=== PATIENT | female | born 1980 | race Caucasian/White ===

== ENCOUNTER 2018-06-10 13:34 | Observation (INO) | payer OTHER, SELFPAY ==
[2018-06-10 13:39] VITALS: BP 152/95; PULSE 115; RESP 12; TEMP 36.2; O2SAT 97
--- NOTE | 2018-06-10 13:54 | ED.GENADUL_ITS ---
Discharge Plan Disposition Patient Disposition: [facility] INPATIENT Condition: Serious Discharge Details Chief Complaint: Abd Prob Clinical Impression: Enteritis, Small bowel obstruction Reason For Visit: ENTEROCOLITIS, DEHYDRATION Admit Date/Time: 06/10/18 18:26 Admit Provider: Renny Velez Attending Provider: Renny Velez Primary Care Provider: Cely Hart ED Provider: Akshat Manuel Discharge Data Discharge Date/Time-TO BE ENTERED AT DEPARTURE: 06/10/18 19:26 Medical Decision Making <Margie Hurley DO - Last Filed: 06/10/18 21:22> 37-year-old female with a history of GERD who presents with vomiting, diarrhea and left upper quadrant pain since 4 AM this morning. Denies fever, recent antibiotics, recent travel, sick contacts or urinary symptoms. Heart rate tachycardic. Afebrile. Patient appears nontoxic. Very minimal left upper quadrant tenderness to palpation. Patient is already had a cholecystectomy. Differential diagnosis includes gastritis, gastroenteritis, GERD, pancreatitis, peptic ulcer disease. She has no right lower or left lower quadrant tenderness, making appendicitis or diverticulitis less likely. Will place an IV, bolus IV fluids, labs, urinalysis, Compazine, GI cocktail and Pepcid. Patient would rather hold on CT imaging at this time. Will reassess after labs, meds and do a p.o. challenge. 1550 --patient states her pain and nausea is now worse. Labs reviewed and white blood cell count 19, anion gap 15. Urinalysis negative. Patient with upper abdominal tenderness extending from right upper quadrant across to left upper quadrant. Patient states she is allergic to morphine which causes a rash. Will give a dose of Dilaudid, Phenergan, and obtain a CT abdomen and pelvis to rule out acute process. 1615 --Case endorsed to Dr. Manuel to follow-up on patient response to meds, and CT imaging. Medical Records Medical records reviewed: Yes I reviewed the patient's medical records. Lab Data Lab results reviewed: Yes I reviewed the patient's lab results. Laboratory Tests Range/Units 06/10/18 06/10/18 06/10/18 14:05 14:05 15:55 WBC (4.4-10.8) k/cumm 19.70 H RBC (4.00-5.20) m/cumm 5.60 H Hgb (12.0-15.5) g/dL 16.6 H Hct (36.0-46.0) % 50.0 H MCV (80-95) fL 89.3 MCH (27.0-33.0) pg 29.6 MCHC (32.0-36.0) g/dL 33.2 RDW (11.7-14.6) % 13.6 Plt Count (130-400) x1000/uL 226 MPV (8.0-11.0) fL 11.8 H Immature Gran % 0.6 Neutrophils % 85.9 Lymphocytes % 10.1 Monocytes % 2.8 Eosinophils % 0.4 Basophils % 0.2 Absolute Neutrophils (1.2-6.7) k/cumm 16.92 H Absolute Lymphocytes (1.2-3.4) k/cumm 1.99 Absolute Monocytes (0.11-0.7) k/cumm 0.55 Absolute Eosinophils (0.0-0.7) k/cumm 0.08 Absolute Basophils (0.0-0.2) k/cumm 0.04 Sodium (136-145) mmol/L 139 Potassium (3.5-5.1) mmol/L 4.1 Chloride (98-107) mmol/L 101 Carbon Dioxide (21.0-32.0) mmol/L 22.6 Anion Gap (3-11) mmol/L 15.4 H BUN (7-18) mg/dL 13 Creatinine (0.55-1.02) mg/dL 1.15 H Estimated GFR/1.73 m2 (mL/min/1.73m2) 52.53 Glucose (70-100) mg/dL 209 H Calcium (8.5-10.1) mg/dL 9.1 Magnesium (1.8-2.4) mg/dL 1.9 Total Bilirubin (0.2-1.0) mg/dL 0.3 AST (15-37) U/L 23 ALT (12-78) U/L 56 Alkaline Phosphatase (46-116) U/L 100 Troponin I (0.00-0.06) ng/mL < 0.02 Total Protein (6.4-8.2) g/dL 8.3 H Albumin (3.4-5.0) g/dL 3.8 Lipase (73-393) U/L 97 Urine Color (Yellow) Yellow Urine Clarity Clear Urine pH (5-8) 6.5 Ur Specific [place] (1.005-1.025) 1.020 Urine Protein (Negative) mg/dL Negative Urine Ketones (Negative) mg/dL Negative Urine Blood (Negative) Small H Urine Nitrite (Negative) Negative Urine Bilirubin (Negative) Negative Urine Urobilinogen (Up TO 0.2) EU/dL 0.2 Ur Leukocyte Esterase (Negative) Negative Urine RBC (0-2) 3-5 H Urine WBC (0-5) HPF Negative Ur Epithelial Cells (Negative) HPF Few Urine Crystals (Negative) HPF Negative Urine Bacteria (Negative) HPF Few Urine Casts (Negative) LPF Negative Urine Mucus (Negative) Trace Urine Other (Negative) Negative Ur Culture Indicated? No Urine Glucose (Negative) mg/dL 100 HPI <Margie Hurley DO - Last Filed: 06/10/18 21:22> General Mode of arrival: ambulatory . Date/Time Provider Initiated Documentation: 06/10/18 13:52 . Limitations to Documentation: no limitations . Information obtained by: patient . HPI Narrative: Patient is a 37-year-old female with history of depression, GERD, cholecystectomy and hysterectomy who presents with vomiting, diarrhea and abdominal pain since 4 AM this morning. Patient states she went to bed feeling fine. Patient states she has vomited approximately 4 times which is been clear, yellow and brown but denies any blood. She states her last episode of vomiting was 1 hour ago. Patient states her diarrhea has been watery and brown and has gone multiple times, with the last episode occurring 1 hour ago. She states her abdominal pain is intermittent, dull located in the left upper quadrant with occasional radiation to her back. She states the pain is currently 4/10. Patient states she feels hungry but she is afraid to eat due to her symptoms. She denies fever, recent antibiotics, recent travel, sick contacts or urinary symptoms. Related Data Home Medications Medication Instructions Recorded Confirmed escitalopram oxalate [Lexapro] 20 mg PO DAILY 07/09/16 06/10/18 methylphenidate HCl [Ritalin] 20 mg PO BID PRN 07/09/16 06/10/18 pantoprazole 40 mg PO DAILY 07/09/16 06/10/18 clonazepam 0.5 mg PO TID PRN 04/22/17 06/10/18 duloxetine 20 mg PO DAILY 06/10/18 06/10/18 Allergies Allergy/AdvReac Type Severity Reaction Status Date / Time morphine Allergy Mild rash at Unverified 06/10/18 13:43 site General Stated Complaint: Abd Prob JAIME: 3 Review of Systems <Margie Hurley DO - Last Filed: 06/10/18 21:22> Review of Systems All systems reviewed & are unremarkable except as noted in HPI and below Constitutional Reports as per HPI, Denies chills and Denies fever(s) Eyes Denies blurry vision ENT Denies dizziness, Denies sore throat and Denies throat swelling Cardiovascular Denies chest pain and Denies dyspnea Respiratory Denies dyspnea Gastrointestinal Reports abdominal pain, Reports diarrhea and Reports vomiting Genitourinary Denies hematuria and Denies dysuria Musculoskeletal Denies back pain and Denies numbness Integumentary/Breasts Denies lesions and Denies rash Neurologic Denies dizziness and Denies numbness Allergic/Immunologic Denies throat swelling PFSH <Margie Hurley DO - Last Filed: 06/10/18 21:22> Medical History Depression (Chronic) GERD (gastroesophageal reflux disease) Surgical History History of knee surgery (Acute) H/O laparoscopy (Chronic) History of hysterectomy (Chronic) Hx of cholecystectomy (Chronic) Social History Smoking/Tobacco Use Status: Current every day alcohol intake: current alcohol intake frequency: a few times a month substance use type: does not use Exam <Margie Hurley DO - Last Filed: 06/10/18 21:22> Const General: cooperative, healthy appearing and no acute distress HENMT Head: normal to inspection Mouth: oral mucosae normal Eyes General: appearance normal, both eyes and all related structures Neck Neck: normal visual inspection Resp Effort & Inspection: normal respiratory effort and able to speak in complete sentences Auscultation: clear to auscultation bilaterally Cardio Rate: regular rate Rhythm: regular rhythm GI Inspection: normal to inspection Palpation: soft, not firm and tender in the epigastrum (Very minimal) and in the LUQ (Minimal); not in the LLQ, not in the RLQ, not in the RUQ, not suprapubicly and with no rebound tenderness Percussion: normal to percussion Auscultation: normal bowel sounds Back/Spine/Pelvis Back: no CVA tenderness Skin General skin exam: no rashes or lesions noted Neuro General: alert, awake and oriented x3 Motor: muscle tone normal throughout Extrem General: normal to inspection, full ROM and no edema Psych Appearance: grossly normal Affect: normal affect Course <Margie Hurley DO - Last Filed: 06/10/18 21:22> Vital Signs Temperature 97.2 F L 06/10/18 13:39 Pulse 115 H 06/10/18 13:39 Respiratory Rate 12 06/10/18 13:39 Blood Pressure 152/95 H 06/10/18 13:39 Pulse Oximetry 97 06/10/18 13:39 Temperature 97.2 F L 06/10/18 13:39 Temperature Source Temporal Artery Scan 06/10/18 13:39 Pulse 115 H 06/10/18 13:39 Respiratory Rate 12 06/10/18 13:39 Respiratory Effort Non-Labored 06/10/18 13:41 Blood Pressure 152/95 H 06/10/18 13:39 Blood Pressure Position Sitting 06/10/18 13:39 Pulse Oximetry 97 06/10/18 13:39 Oxygen Delivery Method Room Air 06/10/18 13:39 Oxygen Flow Rate 0 06/10/18 13:39 Pain Level 1 06/10/18 13:39 Sign Out <Margie Hurley DO - Last Filed: 06/10/18 21:22> Sign Out Data: Sign Out Comment: endorsed to Dr. Manuel to f/u on pt response to meds, ct imaging and final disposition Last updated by Margie Hurley DO at 06/10/18 16:21 Post-Handoff Eval: 16:30 -- Care signed out by Dr. Hurley with plan to follow-up on CT, UA and reassess patient. 17:55 -- CT of the abd and pelv interpreted by radiology: Impression: 1. There are multiple loops of dilated small bowel with air-fluid levels. More distally there is evidence of slowed motility. There is bowel wall thickening in the terminal ileum with enhancement of the mucosa. This may represent enteritis, ileus, or small bowel obstruction. 2. Low-attenuation bowel wall thickening is seen throughout the colon consistent with colitis. Differential diagnosis includes decompressed bowel.. 3. The distal esophagus is fluid-filled. This may be secondary to the ileus or small bowel obstruction. -- Patient reassessed: still having intermittent pain. Now with recurrent nausea and vomiting. I called and spoke with Dr. Luz, relayed ED presentation, course and diagnostic results. She recommends admission to medicine service for IV abx and IVF. Cipro and flagyl IV was ordered. I called and spoke with Dr. Velez who will admit the patient. Care transitioned to Dr. Velez at 18:28.
[2018-06-10 14:14] LABS: Abs Immature Grans 0.11 k/cumm (0.0-0.09); Absolute Eosinophil Count 0.08 k/cumm (0.0-0.7); Basophils % 0.2; Eosinophils % 0.4; HGB 16.6 g/dL (12.0-15.5); Immature Grans % 0.6; Lymphocytes % 10.1; Mean Corp. HGB Concentration 33.2 g/dL (32.0-36.0); Mean Corpuscular Hemoglobin 29.6 pg (27.0-33.0); Mean Corpuscular Volume 89.3 fL (80-95); Mean Platelet Volume 11.8 fL (8.0-11.0); Monocytes % 2.8; Neutrophils % 85.9; Platelet Count 226 x1000/uL (130-400); RBC Distribution Width 13.6 % (11.7-14.6)
[2018-06-10] MEDS: Normal Saline 1,000 ML 1000 ML IV ×2 (14:15→15:48)
[2018-06-10] MEDS: Prochlorperazine 10 MG/2 ML VIAL IVP (14:16)
[2018-06-10 14:19] LABS: Absolute Basophil Count 0.04 k/cumm (0.0-0.2); Absolute Lymphocyte Count 1.99 k/cumm (1.2-3.4); Absolute Monocyte Count 0.55 k/cumm (0.11-0.7); Absolute Neutrophil Count 16.92 k/cumm (1.2-6.7)
[2018-06-10 14:36] LABS: ALT 56 U/L (12-78); AST 23 U/L (15-37); Albumin 3.8 g/dL (3.4-5.0); Alkaline Phosphatase 100 U/L (46-116); Anion Gap 15.4 mmol/L (3-11); BUN 13 mg/dL (7-18); Bilirubin, Total 0.3 mg/dL (0.2-1.0); CO2 22.6 mmol/L (21.0-32.0); CREATININE 1.15 mg/dL (0.55-1.02); Calcium 9.1 mg/dL (8.5-10.1); Chloride 101 mmol/L (98-107); Estimated GFR 52.53 (mL/min/1.73m2); Glucose 209 mg/dL (70-100); Lipase 97 U/L (73-393); Magnesium 1.9 mg/dL (1.8-2.4); Potassium 4.1 mmol/L (3.5-5.1); Sodium 139 mmol/L (136-145); Total Protein 8.3 g/dL (6.4-8.2)
[2018-06-10 14:37] LABS: Troponin I < 0.02 ng/mL (0.00-0.06)
[2018-06-10] MEDS: FAMOTIDINE 20 MG/50 ML BAG 200 MG IVPB (14:47)
[2018-06-10 15:23] VITALS: BP 136/88; PULSE 84; RESP 18; TEMP 36.4; O2SAT 95
[2018-06-10 16:04] LABS: Bilirubin Negative (Negative); Blood Small (Negative); Clarity Clear; Glucose 100 mg/dL (Negative); Ketones Negative (Negative); Leukocyte Esterase Negative (Negative); Nitrite Negative (Negative); Urobilinogen 0.2 EU/dL (Up TO 0.2); pH 6.5 (5-8)
[2018-06-10 16:13] LABS: Bacteria Few HPF (Negative); C & S Indicated? No; Casts Negative LPF (Negative); Crystals Negative HPF (Negative); Epithelial Cells Few HPF (Negative); Mucus Trace (Negative); Other Cells Negative (Negative); WBC Negative HPF (0-5)
--- NOTE | 2018-06-10 16:17 | DI.CT_ITS ---
SYMPTOM/DIAGNOSIS: LUQ ABD PAIN, R/O ACUTE PROCESS CT ABDOMEN AND PELVIS: Images were performed after IV contrast. There is mild basilar atelectasis at the lung bases. Patient is status post cholecystectomy. The liver is mildly enlarged and shows fatty infiltration. The spleen, adrenals, pancreas and kidneys are unremarkable. There are small bilateral renal cysts. There is dilatation of loops of small bowel as well as fluid in the stomach and distal esophagus. There is some wall thickening of the distal and terminal ileum which could represent an inflammatory or infectious enteritis. No focal transition point is seen, The colon is decompressed. There is a small amount of free fluid in the low pelvis. Patient is status post hysterectomy. The bladder is unremarkable. IMPRESSION: Dilated loops of small bowel with mild bowel wall thickening enhancement in the distal and terminal ileum which could indicate infectious or inflammatory ileitis. No transition point is seen.
[2018-06-10] MEDS: HYDROmorphone 2 MG/ML VIAL 0.5 MG IM (16:35)
[2018-06-10] MEDS: Omnipaque 350 MG/ML 100 ML BTL IJ (17:28)
--- NOTE | 2018-06-10 17:48 | DI.VRAD_ITS ---
EXAM: CT Abdomen and Pelvis With Contrast EXAM DATE/TIME: 06/10/2018 4:19 PM CLINICAL HISTORY: 37 years old, female; Pain; Abdominal pain; Localized; Left upper quadrant (luq); Patient HX: Luq pain; Additional info: R/O acute process TECHNIQUE: Axial computed tomography images of the abdomen and pelvis with intravenous contrast. Coronal and sagittal reformatted images were created and reviewed. COMPARISON: No relevant prior studies available. FINDINGS: Lower thorax: Bibasilar atelectasis The distal esophagus is fluid-filled. This may be secondary to the ileus or small bowel obstruction. ABDOMEN: Liver: Hepatomegaly 19 cm No mass. Gallbladder and bile ducts: Cholecystectomy Pancreas: Normal. No ductal dilation. Spleen: Normal. No splenomegaly. Adrenals: Normal. No mass. Kidneys and ureters: 11 mm cyst in the posterior right kidney. 6 mm nodule left kidney 49 Hounsfield units. Stomach and bowel: There are multiple loops of dilated small bowel with air-fluid levels. More distally there is evidence of slowed motility. There is bowel wall thickening in the terminal ileum with enhancement of the mucosa. This may represent enteritis, ileus, or small bowel obstruction. Low-attenuation bowel wall thickening is seen throughout the colon consistent with colitis. Differential diagnosis includes decompressed bowel.. Inflammatory changes between the anterior pelvic wall and a loop of bowel (4:82). May be related to the enteritis Appendix: Normal appendix PELVIS: Bladder: Unremarkable. Reproductive: Hysterectomy ABDOMEN and PELVIS: Intraperitoneal space: Minimal free fluid in the pelvis. Bones/joints: No acute fracture. No dislocation. Soft tissues: Unremarkable. Vasculature: Normal. No abdominal aortic aneurysm. Lymph nodes: Normal. No enlarged lymph nodes. IMPRESSION: 1. There are multiple loops of dilated small bowel with air-fluid levels. More distally there is evidence of slowed motility. There is bowel wall thickening in the terminal ileum with enhancement of the mucosa. This may represent enteritis, ileus, or small bowel obstruction. 2. Low-attenuation bowel wall thickening is seen throughout the colon consistent with colitis. Differential diagnosis includes decompressed bowel.. 3. The distal esophagus is fluid-filled. This may be secondary to the ileus or small bowel obstruction. Dictated and Authenticated by: Martine Cooney MD. Ordering:WILLIAN Hanson MD
[2018-06-10 19:00] VITALS: BP 125/75; PULSE 72; RESP 18; TEMP 36.8; O2SAT 95
[2018-06-10] MEDS: Pantoprazole 40 MG VIAL IVP ×2 (19:05→20:43)
[2018-06-10] MEDS: CIPROFLOXACIN 400 MG/200 ML BAG 200 MG IVPB (19:06)
[2018-06-10 19:27] VITALS: BP 151/106; PULSE 79; RESP 19; TEMP 37.6; O2SAT 96
[2018-06-10 20:06] VITALS: PULSE 79; RESP 18; TEMP 37.6
[2018-06-10] MEDS: Enoxaparin 40 MG/0.4 ML SYR SC (20:42)
[2018-06-10] MEDS: MetroNIDAZOLE 500 MG/100 ML BAG 100 MG IVPB (20:43)
--- NOTE | 2018-06-10 21:24 | W.PM.HP.N ---
Date of service: 06/10/18 Time of Service: 21:24 Assessment and Plan (1) Enterocolitis: Current visit: No Status: Acute clear liquids and symptomatic management w/ prn analgesics and antiemetics; if tolerating po then resume her home meds in the a.m. for her depression and ADHD and anxiety. check stool for fecal pathogens; continue empiric Cipro and Flagyl for now although this is most likely viral enterocolitis. Abdominal exam tonight is benign with no peritoneal signs. If abdominal pain worsens and abdominal exam changes then consider surgical consultation but for now seems to be more enterocolitis than obstruction or appendicitis. History of Present Illness Chief Complaint: abdominal pain, nausea, vomiting and diarrhea Narrative: 37 yr old female who presents to the ER with acute nausea, vomiting, diarrhea and LUQ abdominal pain onset at 4 a.m. today. No associated fevers, recent travel, antibiotic use, sick contacts. Patient is s/p cholecystectomy and has PMH of GERD, depression. CT of her abdomen demonstrated dilated loops of small bowel w/ mild wall thickening and enhancement of the distal and terminal ileum. Labs demonstrated leukocytosis of 19,000, no anemia, normal lipase and CMP with elevated glucose of 209 but otherwise normal renal and LFT function. Patient is admitted now for treatment of enterocolitis and protracted nausea and vomiting. She is hear for parenteral antibiotics and iv fluids. Review of Systems Review of Systems All systems reviewed & are unremarkable except as noted in HPI and below PFSH Medical History Enteritis (Acute) Depression (Chronic) Obstructive sleep apnea (Chronic) GERD (gastroesophageal reflux disease) (Chronic) Acute calculous cholecystitis (Resolved 06/07/13) GERD (gastroesophageal reflux disease) Surgical History H/O laparoscopy (Resolved) History of hysterectomy (Resolved) History of knee surgery (Resolved) Hx of cholecystectomy (Resolved) Status post laparoscopic cholecystectomy (Resolved 06/07/13) Social History Smoking/Tobacco Use Status: Current every day alcohol intake: current alcohol intake frequency: a few times a month substance use type: does not use Meds Home Medications Medication Instructions Recorded Confirmed Type escitalopram oxalate [Lexapro] 20 mg PO DAILY 07/09/16 06/10/18 History methylphenidate HCl [Ritalin] 20 mg PO BID PRN 07/09/16 06/10/18 History pantoprazole 40 mg PO DAILY 07/09/16 06/10/18 History clonazepam 0.5 mg PO TID PRN 04/22/17 06/10/18 History duloxetine 20 mg PO DAILY 06/10/18 06/10/18 History ciprofloxacin HCl 500 mg PO BID #10 tab 06/11/18 Rx metronidazole 500 mg PO TID #15 tab 06/11/18 Rx Allergies Allergy/AdvReac Type Severity Reaction Status Date / Time morphine Allergy Mild rash at Unverified 06/10/18 13:43 site Exam Const General: cooperative and ill appearing acutely Nutritional Appearance: overweight Orientation: alert, awake and oriented x3 HENMT Head: normal to inspection, no palpable skull fracture, normocephalic and atraumatic Ears: hearing grossly normal bilaterally General nose exam: external nose normal and nares normal Face and sinus: normal facial exam Mouth: oral mucosae normal, tongue abnormal discolored (begum) and other (dry mucous membranes) Eyes General: appearance normal, both eyes and all related structures Visual Diana: normal visual diana by confrontation Alignment and Position: alignment normal Periorbital: periorbital findings normal Eyelids: eyelids normal Conjunctivae: conjunctivae normal Sclera: sclerae normal Cornea: corneas normal Pupils: PERRL Neck Neck: normal visual inspection, full ROM, no lymphadenopathy, trachea midline, supple and no JVD Carotids: normal carotid upstroke Lymphatic: no lymphadenopathy noted Resp Effort & Inspection: normal respiratory effort and able to speak in complete sentences Auscultation: wheezes scattered wheezes Cardio Jugular venous pressure: no JVD Palpation: normal PMI Rate: regular rate Rhythm: regular rhythm Heart Sounds: S1 normal, S2 normal and normal, physiologic split S2 Pulses: normal peripheral pulses GI Inspection: normal to inspection Palpation: soft, no hepatosplenomegaly and no guarding Percussion: normal to percussion Auscultation: normal bowel sounds Skin General skin exam: no rashes or lesions noted and other (multiple tatoos) Neuro General: alert, awake, oriented x3, moves all extremities and no focal motor deficits Cognition: normal cognition Speech: speech normal Motor: muscle tone normal throughout, strength 5/5 throughout and no movement abnormalities noted Sensory Exam: no sensory deficits noted Extrem General: normal to inspection, full ROM, normal capillary refill, no joint enlargement and no clubbing, cyanosis or edema Psych Appearance: grossly normal Mental Status: mental status grossly normal Speech and Movement: speech and movement normal Mood: congruent mood Affect: normal affect Attitude: cooperative Thought Process: normal Thought Content: normal Insight: insight good Results Imaging Abdomen CT scan report/results: report reviewed (IMPRESSION: 1. There are multiple loops of dilated small bowel with air-fluid levels. More distally there is evidence of slowed motility. There is bowel wall thickening in the terminal ileum with enhancement of the mucosa. This may represent enteritis, ileus, or small bowel obstruction. 2. Low-) Labs : 06/11/18 06:30 06/11/18 06:30 Laboratory Results - last 24 hr 06/10/18 06/10/18 06/10/18 14:05 14:05 15:55 WBC 19.70 H RBC 5.60 H Hgb 16.6 H Hct 50.0 H MCV 89.3 MCH 29.6 MCHC 33.2 RDW 13.6 Plt Count 226 MPV 11.8 H Immature Gran % 0.6 Neutrophils % 85.9 Lymphocytes % 10.1 Monocytes % 2.8 Eosinophils % 0.4 Basophils % 0.2 Absolute Neutrophils 16.92 H Absolute Lymphocytes 1.99 Absolute Monocytes 0.55 Absolute Eosinophils 0.08 Absolute Basophils 0.04 Sodium 139 Potassium 4.1 Chloride 101 Carbon Dioxide 22.6 Anion Gap 15.4 H BUN 13 Creatinine 1.15 H Estimated GFR/1.73 m2 52.53 Glucose 209 H Calcium 9.1 Magnesium 1.9 Total Bilirubin 0.3 AST 23 ALT 56 Alkaline Phosphatase 100 Troponin I < 0.02 Total Protein 8.3 H Albumin 3.8 Lipase 97 Urine Color Yellow Urine Clarity Clear Urine pH 6.5 Ur Specific [place] 1.020 Urine Protein Negative Urine Ketones Negative Urine Blood Small H Urine Nitrite Negative Urine Bilirubin Negative Urine Urobilinogen 0.2 Ur Leukocyte Esterase Negative Urine RBC 3-5 H Urine WBC Negative Ur Epithelial Cells Few Urine Crystals Negative Urine Bacteria Few Urine Casts Negative Urine Mucus Trace Urine Other Negative Ur Culture Indicated? No Urine Glucose 100 Last Vital Signs Temp 37.6 C H 06/10/18 20:06 Pulse 79 06/10/18 20:06 Resp 18 06/10/18 20:06 BP 151/106 H 06/10/18 19:27 Pulse Ox 96 06/10/18 19:27
--- NOTE | 2018-06-10 22:27 | NUR.NOTE ---
Nursing Note: 06/10/18 1920H Patient admitted to med/surg as ER observation. With complaints of LUQ abdominal pain radiating to the back. Patient ambulated to bed safely. VSS. Lungs clear. This RN will continue to monitor.
[2018-06-10 23:23] VITALS: BP 145/98; PULSE 75; RESP 19; TEMP 37.5; O2SAT 97
[2018-06-11] MEDS: MetroNIDAZOLE 500 MG/100 ML BAG 100 MG IVPB (04:50)
[2018-06-11] MEDS: CIPROFLOXACIN 400 MG/200 ML BAG 200 MG IVPB (05:56)
[2018-06-11 07:20] LABS: Abs Immature Grans 0.08 k/cumm (0.0-0.09); Absolute Basophil Count 0.03 k/cumm (0.0-0.2); Absolute Eosinophil Count 0.29 k/cumm (0.0-0.7); Absolute Lymphocyte Count 3.58 k/cumm (1.2-3.4); Absolute Monocyte Count 0.66 k/cumm (0.11-0.7); Basophils % 0.2; Eosinophils % 2.3; HCT 46.1 % (36.0-46.0); HGB 15.2 g/dL (12.0-15.5); Immature Grans % 0.6; Lymphocytes % 28.3; Mean Corpuscular Hemoglobin 29.6 pg (27.0-33.0); Mean Corpuscular Volume 89.9 fL (80-95); Monocytes % 5.2; Neutrophils % 63.4; Platelet Count 187 x1000/uL (130-400); RBC 5.13 m/cumm (4.00-5.20); RBC Distribution Width 13.8 % (11.7-14.6); White Blood Cell Count 12.65 k/cumm (4.4-10.8)
[2018-06-11 07:21] LABS: Absolute Neutrophil Count 8.02 k/cumm (1.2-6.7)
[2018-06-11 07:36] LABS: ALT 39 U/L (12-78); AST 19 U/L (15-37); Albumin 2.9 g/dL (3.4-5.0); Alkaline Phosphatase 76 U/L (46-116); Anion Gap 11.2 mmol/L (3-11); BUN 8 mg/dL (7-18); Bilirubin, Total 0.3 mg/dL (0.2-1.0); CO2 24.8 mmol/L (21.0-32.0); CREATININE 0.76 mg/dL (0.55-1.02); Calcium 8.2 mg/dL (8.5-10.1); Chloride 106 mmol/L (98-107); Glucose 121 mg/dL (70-100); Potassium 3.7 mmol/L (3.5-5.1); Sodium 142 mmol/L (136-145); Total Protein 6.4 g/dL (6.4-8.2)
[2018-06-11 07:50] VITALS: BP 109/72; PULSE 79; RESP 18; TEMP 36.7; O2SAT 98
--- NOTE | 2018-06-11 10:47 | PDOC.CMIN ---
- If Service Date Differs Date of service: 06/11/18 Time of Service: 10:47 Care Management Initial Assess REASON FOR HOSPITALIZATION:: Enterocolitis PAST MEDICAL HISTORY/PAST SURGICAL HISTORY:: Depression (Chronic). Obstructive sleep apnea (Chronic). GERD (gastroesophageal reflux disease) (Chronic). Acute calculous cholecystitis (Resolved 06/07/13). GERD (gastroesophageal reflux disease). H/O laparoscopy (Resolved). History of hysterectomy (Resolved). History of knee surgery (Resolved). Hx of cholecystectomy (Resolved). Status post laparoscopic cholecystectomy (Resolved 06/07/13) PREVIOUS FUNCTIONAL STATUS/SOCIAL/FAMILY SUPPORTS:: Shira resides with her Sachin and daughter in [place]. Shira is independent in the community at baseline, she works at a local SNF and drives. CURRENT FUNCTIONAL STATUS:: Currently Shira is lying in bed, pleasant and receptive to discussion. She is voicing that she would like to return home today. ADVANCE DIRECTIVES:: None on file Has patient been provided with information about the portal?: Yes Did the patient sign up for the portal?: No CODE STATUS:: Full Code INSURANCE COVERAGE / FINANCIAL ISSUES:: [employer] CURRENT HOME/COMMUNITY SERVICES/EQUIPMENT:: Currently Shira receives no services and has no medical equipment in the community. PRIMARY CARE PHYSICIAN:: Cely Hart POTENTIAL DISCHARGE NEEDS:: F/U appointment with PCP PATIENT/FAMILY EDUCATION NEEDS:: Review DC instructions, any limitations, and ongoing DC planning discussion. Discuss 'Ask Me Three' ANTICIPATED BARRIERS TO DISCHARGE:: None identified at this time TRANSPORTATION:: Via private vehicle with family PLAN:: Shira will return home with no anticipated services once medically cleared. She will F/U with PCP and plan of care as prescribed. Family to transport
--- NOTE | 2018-06-11 13:17 | NUR.NOTE ---
Pt demanded IV catheter to be removed. Pt states that she is leaving AMA if discharge orders are not placed. Nursing Note:
--- NOTE | 2018-06-11 13:40 | W.PM.DS.N ---
Date of service: 06/11/18 Time of Service: 13:40 DS: Diagnosis Discharge Diagnosis (1) Enterocolitis: Status: Acute Discharge Plan Disposition Patient Disposition: HOME Condition: Serious Discharge Details Reason For Visit: ENTEROCOLITIS, DEHYDRATION Admit Date/Time: 06/10/18 18:26 Admit Provider: Renny Velez Attending Provider: Renny Velez Primary Care Provider: Cely Hart Hospital Course Hospital Course: Shira Pettit is a 37-year-old female with a past medical history significant for GERD, depression with anxiety, obstructive sleep apnea, does not wear CPAP, cholecystectomy and hysterectomy who presented to the emergency department last night (06/10/2018) with reports of several hours of abdominal pain, nausea, vomiting and diarrhea. She reported multiple bouts of watery diarrhea. She had a CT abdomen and pelvis which revealed multiple loops of dilated small bowel with air-fluid levels, more distally there was evidence of slowed motility, there was note made of bowel wall thickening in the terminal ileum with enhancement of the mucosa, possibly representing enteritis, ileus, or small bowel obstruction. Low-attenuation bowel wall thickening was also noted throughout the colon consistent with colitis, the distal esophagus was fluid-filled, possibly secondary to ileus or small bowel obstruction. She was noted to have an elevated white blood cell count in the emergency department over 19,000 she was unable to tolerate oral intake. The emergency department attending contacted general surgery who recommended admission to the hospitalist service for IV antibiotics and IV fluids. The patient was admitted to the [facility] floor, she was started on Cipro and Flagyl IV. The following morning she had significant improvement in her white blood cell count down to 12.65, her renal function improved to normal. Stool lactoferrin positive, fecal PCR pending. Her symptoms had largely resolved, she was no longer complaining of abdominal pain, she had not vomited, she had one episode of loose stool. She was adamant that she be discharged home. Given that her symptoms had improved drastically on the Cipro and Flagyl, her infectious enteritis (viral versus bacterial) will continue to be treated with Cipro and Flagyl for a 5-day course. We will have her follow-up with her primary care provider as an outpatient. She will resume her regular medications. Given that her white blood cell count did not yet returned to normal, we will have her follow-up with a CBC next week. Home Meds and New Rx's Prescriptions: New ciprofloxacin HCl 500 mg tablet 500 mg PO BID Qty: 10 RF: 0 metronidazole 500 mg tablet 500 mg PO TID Qty: 15 RF: 0 Continued duloxetine 20 mg Capsule,Delayed Release(Dr/Ec) 20 mg PO DAILY RF: 0 methylphenidate HCl [Ritalin] 20 MG tablet 20 mg PO BID PRNRF: 0 pantoprazole 40 MG tablet,delayed release (DR/EC) 40 mg PO DAILY RF: 0 escitalopram oxalate [Lexapro] 20 MG tablet 20 mg PO DAILY RF: 0 clonazepam 0.5 MG tablet 0.5 mg PO TID PRNRF: 0 Discharge Instructions Instructions: Enteritis (DC) Additional Instructions: Take the antibiotics until they are gone. Do not take cymbalta while taking antibiotics. You may resume your other medications as usual. Resume your diet slowly. Take care! Stand Alone Forms: Nursing Discharge Form Referrals: Cely Hart [Primary Care Provider] - 06/21/18 12:10 pm (They office will call you to schedule a folow up appointment.) Activity:: Activity as Tolerated Equipment/Supplies:: No Equipment Needed Diet:: As Tolerated Discharge Orders Discharge Orders: Discharge Order (Routine); Ordered 06/11/18 Ordered By: Anna Davila Other Ambulatory Orders: Complete Blood Count No Diff (Routine) Timeframe: 1 Week Location: Determined by Patient Ordered By: Anna Davila Exam Narrative Exam Narrative: General: Sitting up in bed, awake and alert, in no acute distress. HEENT: Normocephalic, atraumatic, mucous membranes moist. Neck: Supple, no JVD. Gastrointestinal: Abdomen soft, minimal tenderness on palpation, nondistended, normoactive bowel sounds x4 quadrants. Extremities: Well perfused, no clubbing, cyanosis or edema. DS: Data Vitals/I&O Vitals and I&O: Vital Signs Temperature 36.7 C 06/11/18 07:50 Temperature Source Tympanic 06/11/18 07:50 Pulse 79 06/11/18 07:50 Pulse Rhythm Regular 06/11/18 08:52 Respiratory Rate 18 06/11/18 07:50 Respiratory Effort Non-Labored 06/11/18 08:52 Respiratory Depth Normal 06/11/18 08:52 Respiratory Pattern Normal 06/11/18 08:52 Blood Pressure 109/72 06/11/18 07:50 Blood Pressure Position Sitting 06/10/18 13:39 Pulse Oximetry 98 06/11/18 07:50 Oxygen Delivery Method Room Air 06/11/18 07:50 Oxygen Flow Rate 0 06/11/18 07:50 Pain Level 1 06/11/18 07:50 Intake & Output 06/10/18 06/11/18 06/11/18 23:59 11:59 23:59 Intake Total 2301 / 2301 1502.5 / 1645.0 142.5 / 1645.0 Output Total 1050 / 1050 450 / 450 Balance 1251 / 1251 1052.5 / 1195.0 142.5 / 1195.0 Weight 111.584 kg 115.4 kg Intake: IV 2301 / 2301 1157.5 / 1300.0 142.5 / 1300.0 Oral 345 / 345 Output: Urine 500 / 500 450 / 450 Emesis 550 / 550 Other: Urine Color Straw Dark Bharti Urine Appearance Clear Clear Comment independant Stool Size Moderate Stool Characteristics Soft Liquid Brown Voiding Methods Toilet Toilet # Voids 1 Completed studies during hospitalization [Text1]: 06/10/2018: CT ABDOMEN AND PELVIS: Images were performed after IV contrast. There is mild basilar atelectasis at the lung bases. Patient is status post cholecystectomy. The liver is mildly enlarged and shows fatty infiltration. The spleen, adrenals, pancreas and kidneys are unremarkable. There are small bilateral renal cysts. There is dilatation of loops of small bowel as well as fluid in the stomach and distal esophagus. There is some wall thickening of the distal and terminal ileum which could represent an inflammatory or infectious enteritis. No focal transition point is seen, The colon is decompressed. There is a small amount of free fluid in the low pelvis. Patient is status post hysterectomy. The bladder is unremarkable. IMPRESSION: Dilated loops of small bowel with mild bowel wall thickening enhancement in the distal and terminal ileum which could indicate infectious or inflammatory ileitis. No transition point is seen. Labs on day of discharge: Labs from last 24 hours 06/11/18 06/11/18 06/11/18 08:28 06:30 06:30 WBC 12.65 H D RBC 5.13 Hgb 15.2 Hct 46.1 H MCV 89.9 MCH 29.6 MCHC 33.0 RDW 13.8 Plt Count 187 MPV 12.0 H Immature Gran % 0.6 Neutrophils % 63.4 Lymphocytes % 28.3 Monocytes % 5.2 Eosinophils % 2.3 Basophils % 0.2 Absolute Neutrophils 8.02 H Absolute Lymphocytes 3.58 H Absolute Monocytes 0.66 Absolute Eosinophils 0.29 Absolute Basophils 0.03 Sodium 142 Potassium 3.7 Chloride 106 Carbon Dioxide 24.8 Anion Gap 11.2 H BUN 8 Creatinine 0.76 Estimated GFR/1.73 m2 >= 60.00 Glucose 121 H D Calcium 8.2 L Magnesium Total Bilirubin 0.3 AST 19 ALT 39 Alkaline Phosphatase 76 Troponin I Total Protein 6.4 Albumin 2.9 L Lipase Urine Color Urine Clarity Urine pH Ur Specific [place] Urine Protein Urine Ketones Urine Blood Urine Nitrite Urine Bilirubin Urine Urobilinogen Ur Leukocyte Esterase Urine RBC Urine WBC Ur Epithelial Cells Urine Crystals Urine Bacteria Urine Casts Urine Mucus Urine Other Ur Culture Indicated? Urine Glucose Stool Campylobacter PCR Pending Stool Salmonella PCR Pending Stool Shigella PCR Pending Shiga Toxin (PCR) Pending 06/10/18 06/10/18 06/10/18 15:55 14:05 14:05 WBC 19.70 H RBC 5.60 H Hgb 16.6 H Hct 50.0 H MCV 89.3 MCH 29.6 MCHC 33.2 RDW 13.6 Plt Count 226 MPV 11.8 H Immature Gran % 0.6 Neutrophils % 85.9 Lymphocytes % 10.1 Monocytes % 2.8 Eosinophils % 0.4 Basophils % 0.2 Absolute Neutrophils 16.92 H Absolute Lymphocytes 1.99 Absolute Monocytes 0.55 Absolute Eosinophils 0.08 Absolute Basophils 0.04 Sodium 139 Potassium 4.1 Chloride 101 Carbon Dioxide 22.6 Anion Gap 15.4 H BUN 13 Creatinine 1.15 H Estimated GFR/1.73 m2 52.53 Glucose 209 H Calcium 9.1 Magnesium 1.9 Total Bilirubin 0.3 AST 23 ALT 56 Alkaline Phosphatase 100 Troponin I < 0.02 Total Protein 8.3 H Albumin 3.8 Lipase 97 Urine Color Yellow Urine Clarity Clear Urine pH 6.5 Ur Specific [place] 1.020 Urine Protein Negative Urine Ketones Negative Urine Blood Small H Urine Nitrite Negative Urine Bilirubin Negative Urine Urobilinogen 0.2 Ur Leukocyte Esterase Negative Urine RBC 3-5 H Urine WBC Negative Ur Epithelial Cells Few Urine Crystals Negative Urine Bacteria Few Urine Casts Negative Urine Mucus Trace Urine Other Negative Ur Culture Indicated? No Urine Glucose 100 Stool Campylobacter PCR Stool Salmonella PCR Stool Shigella PCR Shiga Toxin (PCR) PFSH Medical History Enteritis (Acute) Depression (Chronic) Obstructive sleep apnea (Chronic) GERD (gastroesophageal reflux disease) (Chronic) Acute calculous cholecystitis (Resolved 06/07/13) GERD (gastroesophageal reflux disease) Surgical History H/O laparoscopy (Resolved) History of hysterectomy (Resolved) History of knee surgery (Resolved) Hx of cholecystectomy (Resolved) Status post laparoscopic cholecystectomy (Resolved 06/07/13) Social History Smoking/Tobacco Use Status: Current every day alcohol intake: current alcohol intake frequency: a few times a month substance use type: does not use
[2018-06-12 12:42] LABS: Campylobacter PCR SEE COMMENTS; Salmonella PCR SEE COMMENTS; Shiga Toxin PCR SEE COMMENTS; Shigella/Enteroinvasive Ecoli SEE COMMENTS
== END 2018-06-11 14:10 | disposition home or self-care (01) ==
LOC: ER 18:29 → MS 19:18
PROVIDERS: Physician Assistant; Admitting Provider Internal Medicine; Emergency Provider Student in an Organized Health Care Education/Training Program; PCP Nurse Practitioner Family; Visit Provider Internal Medicine
DX: K52.9 Noninfective gastroenteritis and colitis, unspecified (principal); E86.0 Dehydration; D72.829 Elevated white blood cell count, unspecified; F32.9 Major depressive disorder, single episode, unspecified; F90.9 Attention-deficit hyperactivity disorder, unspecified type; F41.9 Anxiety disorder, unspecified
CPT/HCPCS: 36415; 80053; 83690; 87505; 96361; 96365; 96372; 96375; 99219; 99239; 99285; J1650; 74177; 81003; 81015; 83630; 83735; 84484; 85025; G0378; J0744; J0780; J3490

== ENCOUNTER 2018-07-15 13:01 | Emergency (ER) | payer OTHER, SELFPAY ==
--- NOTE | 2018-07-15 13:23 | W.ED.GENAD ---
Discharge Plan Disposition Patient Disposition: [facility] Condition: Good Discharge Details Chief Complaint: PsychEval Clinical Impression: Depression Reason For Visit: suicidal Primary Care Provider: BRITTANY HOLLAND ED Provider: Elan Crouch Home Meds and New Rx's Prescriptions: No Action duloxetine 20 mg Capsule,Delayed Release(Dr/Ec) 20 mg PO DAILY RF: 0 ciprofloxacin HCl 500 mg tablet 500 mg PO BID Qty: 10 RF: 0 metronidazole 500 mg tablet 500 mg PO TID Qty: 15 RF: 0 methylphenidate HCl [Ritalin] 20 MG tablet 20 mg PO BID PRNRF: 0 pantoprazole 40 MG tablet,delayed release (DR/EC) 40 mg PO DAILY RF: 0 escitalopram oxalate [Lexapro] 20 MG tablet 20 mg PO DAILY RF: 0 clonazepam 0.5 MG tablet 0.5 mg PO TID PRNRF: 0 Discharge Instructions Additional Instructions: Please go directly to the [facility] with your family. Do not stop anywhere, go directly to the front door to be processed as an outpatient. If you have any concerns of self-harm during the trip immediately stop and go to the nearest ER facility. Medical Decision Making This is a 38-year-old female with a past medical history of depression who presents today for suicidal ideations for the last 3 days in conjunction with depression for the last few months. Patient states that factors in life are building, and she feels extremely anxious with her current state. She states that she would end her life by using a gun or multiple doses of her clonazepam. Family is at bedside. She denies taking any extra medications or drugs today. She has no other complaints at this time. She has reached out to her mental health specialist as well as [facility], who have told her that she has a bed ready and she needs to come here first for evaluation. We will place the patient in observation, paper scrubs, and elicited to help with mental health. 3:39 PM Patient has been medically cleared. Laboratory workup is benign. Mental health is, and evaluated the patient, they agree on the patient's need for admission. Fortunately the patient has been given notable misinformation by the initial staff at [facility], and they informed the patient that she could just come to the ER, get checked out and then drive by private vehicle down to the facility. This is clearly not the case secondary to CMS protocol. The patient is a voluntary admit, and per mental health and my assessment she is not PE as she is voluntary at this time, and does not qualify for PE. The patient has become extremely upset when she is realized that she will not be able to ride with her family by private vehicle down to [facility]. She has made it exquisitely clear that she still does want treatment and wants in a proper retreat but secondary to panic, anxiety, and PTSD she would have a mental breakdown, and would not be able to facilitate the right alone down with a shower for ambulance. We did offer medications to help alleviate this and the patient has refused. Patient is still requesting to go to [facility], but is demanding that she goes with her family. Her and daughter are at bedside and her very reasonable people. They want what is best for their , and with like to bring her down together. After multiple prolonged conversations, the patient would like to leave AGAINST MEDICAL ADVICE at this time, to go by private vehicle directly down to the [facility]. She is not E able still, and she understands the risks of leaving like this. I am not able to force her to stay, I do not think that it is may or in the patient's best interest to medically sedate the patient now to abide by our wishes. As the patient is seeking her own benefit and care at [facility], family is extremely reasonable and looking to help her in the best way possible, and respecting the wishes of the patient and her true best interest, I do feel it reasonable to have her leave AGAINST MEDICAL ADVICE to [facility] to be transported by her personal private vehicle with her family driving. We have elicited the help of mental health, and they have confirmed with [facility] that they will accept her for admission when she shows up at their door by private vehicle after leaving AGAINST MEDICAL ADVICE here. I have extensively reviewed the treatment plan and discharge instructions with the patient and their family. I have addressed all patient concerns at this time. The patient and family was made aware of what symptoms to monitor for that would warrant a return to the emergency department. Discussed the plan with the patient and family, they demonstrate verbal understanding and agreement with our assessment and plan at this time. HPI General Date/Time Provider Initiated Documentation: 07/15/18 13:18. HPI Narrative: This is a 38-year-old female with a past medical history of depression and suicidal ideations who presents today for evaluation of suicidal ideations and depression. The patient states that for the last 2-3 months she has been increasingly depressed and over the last few days she has been suicidal. She states that she would kill herself with using a gun or multiple doses of her clonazepam. She did take 2 pills today which is well within her normal limits because she was so anxious. She did have a previous attempt 27 years ago. She denies taking any other medications. She denies IV or illicit drug use, trauma or other complaints. No other modifying factors. She has reached out to her mental health specialist and [facility] and has been told you have her room at [facility] already. But she needed to come in here for insurance purposes per the patient famil. Related Data Home Medications Medication Instructions Recorded Confirmed escitalopram oxalate [Lexapro] 20 mg PO DAILY 07/09/16 06/10/18 methylphenidate HCl [Ritalin] 20 mg PO BID PRN 07/09/16 06/10/18 pantoprazole 40 mg PO DAILY 07/09/16 06/10/18 clonazepam 0.5 mg PO TID PRN 04/22/17 06/10/18 duloxetine 20 mg PO DAILY 06/10/18 06/10/18 ciprofloxacin HCl 500 mg PO BID #10 tab 06/11/18 metronidazole 500 mg PO TID #15 tab 06/11/18 Previous Rx's Medication Instructions Recorded ciprofloxacin HCl 500 mg PO BID #10 tab 06/11/18 metronidazole 500 mg PO TID #15 tab 06/11/18 Allergies Allergy/AdvReac Type Severity Reaction Status Date / Time morphine Allergy Mild rash at Unverified 06/10/18 13:43 site General JAIME: 3 Review of Systems Review of Systems All systems reviewed & are unremarkable except as noted in HPI and below PFSH Social History Smoking and Tabacco status: Current every day alcohol intake: current alcohol intake frequency: a few times a month substance use type: does not use Exam Narrative Exam Narrative: 1.Const: Well-nourished, Well-developed, appearing stated age 2.Eyes: PERRL, no conjunctival injection, and symmetrical lids. 3.ENT: Atraumatic external nose and ears. Moist MM. Neck: Symmetric, trachea midline, No thyromegaly. 4.CVS: +S1/S2, No murmurs or gallops. Peripheral pulses 2+ and equal in all extremities. Brisk capillary refill in all extremities. 5.RESP: Unlabored respiratory effort. Clear to auscultation bilaterally. No wheezes rales or rhonchi 6.GI: Soft, Nontender/Nondistended, No hepatosplenomegaly. No guarding or rebound. 7.MSK: Normocephalic/Atraumatic, Extremities w/o deformity or ttp No cyanosis or clubbing, Normal movement of all extremities 8.Skin: Warm, Dry. No rashes or lesions. 9.Neuro: risk professional II-XII grossly intact. Sensation grossly intact, no focal neurologic deficits. 10.Psych: (AAO) x3. Mood and affect is tearful and slightly flat
--- NOTE | 2018-07-15 13:27 | ED.GENADUL_ITS ---
Discharge Plan Disposition Patient Disposition: [facility] Condition: Good Discharge Details Chief Complaint: PsychEval Clinical Impression: Depression Reason For Visit: suicidal Primary Care Provider: BRITTANY HOLLAND ED Provider: Elan Crouch Home Meds and New Rx's Prescriptions: No Action duloxetine 20 mg Capsule,Delayed Release(Dr/Ec) 20 mg PO DAILY RF: 0 ciprofloxacin HCl 500 mg tablet 500 mg PO BID Qty: 10 RF: 0 metronidazole 500 mg tablet 500 mg PO TID Qty: 15 RF: 0 methylphenidate HCl [Ritalin] 20 MG tablet 20 mg PO BID PRNRF: 0 pantoprazole 40 MG tablet,delayed release (DR/EC) 40 mg PO DAILY RF: 0 escitalopram oxalate [Lexapro] 20 MG tablet 20 mg PO DAILY RF: 0 clonazepam 0.5 MG tablet 0.5 mg PO TID PRNRF: 0 Discharge Instructions Additional Instructions: Please go directly to the [facility] with your family. Do not stop anywhere, go directly to the front door to be processed as an outpatient. If you have any concerns of self-harm during the trip immediately stop and go to the nearest ER facility. Medical Decision Making This is a 38-year-old female with a past medical history of depression who presents today for suicidal ideations for the last 3 days in conjunction with depression for the last few months. Patient states that factors in life are building, and she feels extremely anxious with her current state. She states that she would end her life by using a gun or multiple doses of her clonazepam. Family is at bedside. She denies taking any extra medications or drugs today. She has no other complaints at this time. She has reached out to her mental health specialist as well as [facility], who have told her that she has a bed ready and she needs to come here first for evaluation. We will place the patient in observation, paper scrubs, and elicited to help with mental health. 3:39 PM Patient has been medically cleared. Laboratory workup is benign. Mental health is, and evaluated the patient, they agree on the patient's need for admission. Fortunately the patient has been given notable misinformation by the initial staff at [facility], and they informed the patient that she could just come to the ER, get checked out and then drive by private vehicle down to the facility. This is clearly not the case secondary to [facility] protocol. The patient is a voluntary admit, and per mental health and my assessment she is not PE as she is voluntary at this time, and does not qualify for PE. The patient has become extremely upset when she is realized that she will not be able to ride with her family by private vehicle down to [facility]. She has made it exquisitely clear that she still does want treatment and wants in a proper retreat but secondary to panic, anxiety, and PTSD she would have a mental breakdown, and would not be able to facilitate the right alone down with a shower for ambulance. We did offer medications to help alleviate this and the patient has refused. Patient is still requesting to go to [facility], but is demanding that she goes with her family. Her and daughter are at bedside and her very reasonable people. They want what is best for their , and with like to bring her down together. After multiple prolonged conv ersations, the patient would like to leave AGAINST MEDICAL ADVICE at this time, to go by private vehicle directly [facility]. She is not E able still, and she understands the risks of leaving like this. I am not able to force her to stay, I do not think that it is may or in the patient's best interest to medically sedate the patient now to abide by our wishes. As the patient is seeking her own benefit and care at [facility], family is extremely reasonable and looking to help her in the best way possible, and respecting the wishes of the patient and her true best interest, I do feel it reasonable to have her leave AGAINST MEDICAL ADVICE to [facility] to be transported by her personal private vehicle with her family driving. We have elicited the help of mental health, and they have confirmed with [facility] that they will accept her for admission when she shows up at their door by private vehicle after leaving AGAINST MEDICAL ADVICE here. I have extensively reviewed the treatment plan and discharge instructions with the patient and their family. I have addressed all patient concerns at this time. The patient and family was made aware of what symptoms to monitor for that would warrant a return to the emergency department. Discussed the plan with the patient and family, they demonstrate verbal understanding and agreement with our assessment and plan at this time. HPI General Date/Time Provider Initiated Documentation: 07/15/18 13:18 . HPI Narrative: This is a 38-year-old female with a past medical history of depression and suicidal ideations who presents today for evaluation of suicidal ideations and depression. The patient states that for the last 2-3 months she has been increasingly depressed and over the last few days she has been suicidal. She states that she would kill herself with using a gun or multiple doses of her clonazepam. She did take 2 pills today which is well within her normal limits because she was so anxious. She did have a previous attempt 27 years ago. She denies taking any other medications. She denies IV or illicit drug use, trauma or other complaints. No other modifying factors. She has reached out to her mental health specialist and [facility] and has been told you have her room at [facility] already. But she needed to come in here for insurance purposes per the patient famil. Related Data Home Medications Medication Instructions Recorded Confirmed escitalopram oxalate [Lexapro] 20 mg PO DAILY 07/09/16 06/10/18 methylphenidate HCl [Ritalin] 20 mg PO BID PRN 07/09/16 06/10/18 pantoprazole 40 mg PO DAILY 07/09/16 06/10/18 clonazepam 0.5 mg PO TID PRN 04/22/17 06/10/18 duloxetine 20 mg PO DAILY 06/10/18 06/10/18 ciprofloxacin HCl 500 mg PO BID #10 tab 06/11/18 metronidazole 500 mg PO TID #15 tab 06/11/18 Previous Rx's Medication Instructions Recorded ciprofloxacin HCl 500 mg PO BID #10 tab 06/11/18 metronidazole 500 mg PO TID #15 tab 06/11/18 Allergies Allergy/AdvReac Type Severity Reaction Status Date / Time morphine Allergy Mild rash at Unverified 06/10/18 13:43 site General JAIME: 3 Review of Systems Review of Systems All systems reviewed & are unremarkable except as noted in HPI and below PFSH Social History Smoking and Tabacco status: Current every day alcohol intake: current alcohol intake frequency: a few times a month substance use type: does not use Exam Narrative Exam Narrative: 1.Const: Well-nourished, Well-developed, appearing stated age 2.Eyes: PERRL, no conjunctival injection, and symmetrical lids. 3.ENT: Atraumatic external nose and ears. Moist MM. Neck: Symmetric, trachea midline, No thyromegaly. 4.CVS: +S1/S2, No murmurs or gallops. Peripheral pulses 2+ and equal in all extremities. Brisk capillary refill in all extremities. 5.RESP: Unlabored respiratory effort. Clear to auscultation bilaterally. No wheezes rales or rhonchi 6.GI: Soft, Nontender/Nondistended, No hepatosplenomegaly. No guarding or rebound. 7.MSK: Normocephalic/Atraumatic, Extremities w/o deformity or ttp No cyanosis or clubbing, Normal movement of all extremities 8.Skin: Warm, Dry. No rashes or lesions. 9.Neuro: eclectic doctor II-XII grossly intact. Sensation grossly intact, no focal neurologic deficits. 10.Psych: (AAO) x3. Mood and affect is tearful and slightly flat
[2018-07-15 13:35] VITALS: BP 154/89; PULSE 89; RESP 15; TEMP 36.4; O2SAT 98
[2018-07-15 13:51] LABS: Bilirubin Negative (Negative); Blood Trace-intact (Negative); Clarity Clear; Glucose Negative (Negative); Ketones Trace mg/dL (Negative); Leukocyte Esterase Negative (Negative); Nitrite Negative (Negative); Urobilinogen 0.2 EU/dL (Up TO 0.2)
[2018-07-15 14:01] LABS: *AMPHETAMINES SCREEN URINE Negative (Negative); *BARBITURATES SCREEN URINE Negative (Negative); *BENZODIAZEPINES SCREEN URINE Negative (Negative); Cannabinoids THC Negative (Negative); Cocaine Screen,Urine Negative (Negative); METHADONE URINE SCREEN Negative (Negative); OPIATES URINE SCREEN Negative (Negative)
[2018-07-15 14:05] LABS: Tricyclic Antidepressants Negative (Negative)
--- NOTE | 2018-07-15 14:07 | NUR.NOTE ---
Nursing Note: Currently this RN is one to one observation with patient. Nurse Metrology Technician Felicia urbina.
--- NOTE | 2018-07-15 14:07 | PDOC.ERCMPRO ---
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 Shira has a history of depression, ADHD, and anxiety. Shira presents today for suicidal ideation for the past three days stating she would end her life using a gun or take her medication. Dr. Crouch has ordered a CPSO. Discussed safety plan with Shira. Shira has requested that the door to her room be closed. This CM explained that a CPSO would need to see her at all times. Shira states that she works for [facility] and that two of her coworkers (she works for [employer]) are in the building and she doesn't want them to see her. Explained that her coworkers would not be in the emergency department. Shira verbalized understanding of the CPSO having to see her. Daughter Kanchan is in the room during the interview. Shira also stated to this CM that [facility] has a bed for her and that she has spoken to [facility] already. Shira states that her cook room supervisor called human resources and was told that she needed to come to the emergency department before going to [facility] or she would have a $5000 deductible she would have to pay. Shira states that she would of rather gone straight to [facility]. Shira verbalizes understanding of the safety plan. This CM called [facility] and spoke with Marva. Marva states they will save the bed for Shira (she was supposed to be a direct admit) as she was supposed to be at [facility] for 5. Marva stated that since Shira is here, she will need to be medically cleared, and go through the process. Insurance does require a prior auth that Marva stated mental health could of helped her with rather than come to the ED. Dr. Crouch, Anna RN, aware of the above. VOLUNTARY FOR INPATIENT PSYCHIATRIC STABILIZATION. Patient is appropriate in all interactions since arriving at [facility]; Pt has demonstrated appropriate coping and communication skills, has articulated his or her needs and concerns and is fully engaged during staff interactions. Safety plan has been established with patient, and care team, to adhere to patient goals, identify restrictions based on behavioral status, address nutrition, and determine allowed personal belongings, tools for hygiene and personal care. Determine level of activity including ambulation, level of supervision, visitors, and determine privileges based on behaviors and level of engagement by pt. Melendrez. Safety Plan 07/15/18 SAFETY PLAN: 1. Patient will remain on suicide precautions. In Paper Clothes 2. Patient will remain in room under direct supervision of one-on-one staff at all times provided by CPSO; EMT, CHARGING BOARD OPERATOR, QUALITY CONTROL TESTER tram operator. 3. May have paper cups, plates, finger foods as well as a metal spoon with which to eat meals. [facility] staff will be responsible for accounting of utensils after meals. 4. Follow [facility] Management of the Admitted Behavioral Health Patient policy. 5. Comfort bath system only. 6. No personal belongings in room 7. Visitors: Sachin and daughter Kanchan only 8. Activities: May have activities from the Mental Health activity cart as well as her own playing cards 9. Bathroom privileges: Patient will be escorted to and from the bathroom 10. Phone: May use house phone to call and/or daughter 11. Due to VOLUNTARY status, if patient wishes to leave [facility], the [facility] tank worker must be contacted to re-evaluate patient prior to patient exiting the building. Patient is currently voluntarily at [facility] and seeking inpatient admission when a bed becomes available. [facility] Frontline Vegetable I Farmworker will continue seeking placement. Please contact the Panel Machine Operator Senior Maintenance Mechanic ([phone]) and [facility] Vegetable I Farmworker ([phone]) for any needed changes in the Safety Plan. Safety plan has been provided to interdepartmental care team including Clinical Coordinator, Nursing Radiology Physician Assistant.
[2018-07-15 14:13] LABS: Bacteria Negative HPF (Negative); Crystals Negative HPF (Negative); Epithelial Cells Negative HPF (Negative); Other Cells Negative (Negative); RBC 0-2 (0-2); WBC 0-2 HPF (0-5)
[2018-07-15 14:14] LABS: C & S Indicated? No; Casts Negative LPF (Negative); Mucus Negative (Negative)
[2018-07-15 14:19] LABS: Abs Immature Grans 0.08 k/cumm (0.0-0.09); Absolute Basophil Count 0.05 k/cumm (0.0-0.2); Absolute Eosinophil Count 0.29 k/cumm (0.0-0.7); Absolute Lymphocyte Count 3.74 k/cumm (1.2-3.4); Absolute Monocyte Count 0.56 k/cumm (0.11-0.7); Absolute Neutrophil Count 5.33 k/cumm (1.2-6.7); Basophils % 0.5; Eosinophils % 2.9; HCT 44.8 % (36.0-46.0); HGB 14.9 g/dL (12.0-15.5); Immature Grans % 0.8; Lymphocytes % 37.2; Mean Corp. HGB Concentration 33.3 g/dL (32.0-36.0); Mean Corpuscular Hemoglobin 29.6 pg (27.0-33.0); Mean Corpuscular Volume 88.9 fL (80-95); Monocytes % 5.6; Platelet Count 188 x1000/uL (130-400); RBC 5.04 m/cumm (4.00-5.20); RBC Distribution Width 13.6 % (11.7-14.6); White Blood Cell Count 10.05 k/cumm (4.4-10.8)
--- NOTE | 2018-07-15 14:26 | PDOC.MHCN ---
Date of service: 07/15/18 Time of Service: 14:26 Mental Health Crisis Note Presenting Issue How did you arrive at the ED and why did you come: Shira arrived at the emergency room with her daughter following one and one half weeks of being suicidal. She reports she made efforts to admit herself to [facility] and was told to come to [facility] first. Precipitating Factors Shira reports she has post traumatic stress disorder. She reports she has not been sleeping. She identified patterns of racing thoughts that seem to get jumbled. This makes it difficult for her to sleep. She reports she has been suicidal and made efforts before. Her daughter has had to remove guns from the home and lock all pills. This morning, Shira was unable to go to work and began seeking hospital beds on her own. Disposition BEHAVIOR: cooperative but blunted EYE CONTACT: good MOOD: depressed AFFECT: constricted APPETITE: fair SLEEP(trouble falling/staying asleep: difficulty falling asleep and staying asleep. Woke up this morning screaming for relief from confusion. Plan Referral to [facility] is in process. She will remain at [facility] until admission process is completed.
[2018-07-15 14:27] LABS: ALT 66 U/L (12-78); AST 37 U/L (15-37); Albumin 3.6 g/dL (3.4-5.0); Alkaline Phosphatase 88 U/L (46-116); Anion Gap 9.5 mmol/L (3-11); BUN 10 mg/dL (7-18); Bilirubin, Total 0.2 mg/dL (0.2-1.0); CO2 26.5 mmol/L (21.0-32.0); CREATININE 0.77 mg/dL (0.55-1.02); Chloride 106 mmol/L (98-107); Glucose 154 mg/dL (70-100); Potassium 3.8 mmol/L (3.5-5.1); Sodium 142 mmol/L (136-145); TSH (W/Ref FT4) 2.08 uIU/mL (0.358-3.74); Total Protein 7.4 g/dL (6.4-8.2)
--- NOTE | 2018-07-15 14:35 | PDOC.MHCN_ITS ---
Date of service: 07/15/18 Time of Service: 14:26 Mental Health Crisis Note Presenting Issue How did you arrive at the ED and why did you come: Shira arrived at the emergency room with her daughter following one and one half weeks of being suicidal. She reports she made efforts to admit herself to [facility] and was told to come to [facility] first. Precipitating Factors Shira reports she has post traumatic stress disorder. She reports she has not been sleeping. She identified patterns of racing thoughts that seem to get jumbled. This makes it difficult for her to sleep. She reports she has been suicidal and made efforts before. Her daughter has had to remove guns from the home and lock all pills. This morning, Shira was unable to go to work and began seeking hospital beds on her own. Disposition BEHAVIOR: cooperative but blunted EYE CONTACT: good MOOD: depressed AFFECT: constricted APPETITE: fair SLEEP(trouble falling/staying asleep: difficulty falling asleep and staying asleep. Woke up this morning screaming for relief from confusion. Plan Referral to [facility] is in process. She will remain at [facility] until admission process is completed.
[2018-07-15 14:36] LABS: ETHANOL BLOOD < 3.0 mg/dL (<3)
--- NOTE | 2018-07-15 14:46 | CMPROGNOTE_ITS ---
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 Shira has a history of depression, ADHD, and anxiety. Shira presents today for suicidal ideation for the past three days stating she would end her life using a gun or take her medication. Dr. Crouch has ordered a CPSO. Discussed safety plan with Shira. Shira has requested that the door to her room be closed. This CM explained that a CPSO would need to see her at all times. Shira states that she works for [facility] and that two of her coworkers (she works for [employer]) are in the building and she doesn't want them to see her. Explained that her coworkers would not be in the emergency department. Shira verbalized understanding of the CPSO having to see her. Daughter Kanchan is in the room during the interview. Shira also stated to this CM that [facility] has a bed for her and that she has spoken to [facility] already. Shira states that her slab lifting supervisor called human resources and was told that she needed to come to the emergency department before going to [facility] or she would have a $5000 deductible she would have to pay. Shira states that she would of rather gone straight to [facility]. Shira verbalizes understanding of the safety plan. This CM called [facility] and spoke with Marva. Marva states they will save the bed for Shira (she was supposed to be a direct admit) as she was supposed to be at [facility] for 5. Marva stated that since Shira is here, she will need to be medically cleared, and go through the process. Insurance does require a prior auth that Marva stated mental health could of helped her with rather than come to the ED. Dr. Crouch, Anna RN, aware of the above. VOLUNTARY FOR INPATIENT PSYCHIATRIC STABILIZATION. Patient is appropriate in all interactions since arriving at [facility]; Pt has demonstrated appropriate coping and communication skills, has articulated his or her needs and concerns and is fully engaged during staff interactions. Safety plan has been established with patient, and care team, to adhere to patient goals, identify restrictions based on behavioral status, address nutrition, and determine allowed personal belongings, tools for hygiene and personal care. Determine level of activity including ambulation, level of supervision, visitors, and determine privileges based on behaviors and level of engagement by pt. Melendrez. Safety Plan 07/15/18 SAFETY PLAN: 1. Patient will remain on suicide precautions. In Paper Clothes 2. Patient will remain in room under direct supervision of one-on-one staff at all times provided by CPSO; EMT, SECTION LEADER SCREEN PRINTING, WATCH REPAIRER converter supervisor. 3. May have paper cups, plates, finger foods as well as a metal spoon with which to eat meals. [facility] staff will be responsible for accounting of utensils after meals. 4. Follow [facility] Management of the Admitted Behavioral Health Patient policy. 5. Comfort bath system only. 6. No personal belongings in room 7. Visitors: Sachin and daughter Kanchan only 8. Activities: May have activities from the Mental Health activity cart as well as her own playing cards 9. Bathroom privileges: Patient will be escorted to and from the bathroom 10. Phone: May use house phone to call and/or daughter 11. Due to VOLUNTARY status, if patient wishes to leave [facility], the [facility] shortage worker must be contacted to re-evaluate patient prior to patient exiting the building. Patient is currently voluntarily at [facility] and seeking inpatient admission when a bed becomes available. [facility] Frontline Alarm Adjuster will continue seeking placement. Please contact the Pie Crimping Machine Operator Bricklayer'S Assistant ([phone]) and [facility] Alarm Adjuster ([phone]) for any needed changes in the Safety Plan. Safety plan has been provided to interdepartmental care team including Clinical Coordinator, Nursing Photoflash Powder Mixer.
[2018-07-15 15:00] LABS: Salicylate 3.3 mg/dL (2.8-20.0)
[2018-07-15 15:04] LABS: Acetaminophen < 2 ug/mL (10-30)
--- NOTE | 2018-07-15 15:11 | NUR.NOTE ---
Nursing Note: This RN, window caser Natacha and Bison in room speaking with patient. Pt expressed that she wanted to leave AMA. aware. will continue to monitor for further orders
--- NOTE | 2018-07-16 12:43 | PDOC.ERCMPRO ---
Care Management Progress Note 07/16-Shira left AMA yesterday. This CM tried reaching out to Shira today but she is at [facility] for an inpatient stay.
== END 2018-07-15 15:57 | disposition short-term general hospital (02) ==
PROVIDERS: Emergency Provider Student in an Organized Health Care Education/Training Program; PCP Internal Medicine
DX: F32.9 Major depressive disorder, single episode, unspecified (principal); R45.851 Suicidal ideations
CPT/HCPCS: 36415; 80053; 80307; 99285; 80320; 80329; 81003; 81015; 84443; 85025; 99284

== ENCOUNTER 2018-08-27 07:16 | Outpatient (CLI) | payer OTHER, SELFPAY ==
[2018-08-27 08:19] LABS: HCT 46.3 % (36.0-46.0); HGB 14.9 g/dL (12.0-15.5); Mean Corp. HGB Concentration 32.2 g/dL (32.0-36.0); Mean Corpuscular Hemoglobin 28.6 pg (27.0-33.0); Mean Corpuscular Volume 88.9 fL (80-95); Mean Platelet Volume 11.9 fL (8.0-11.0); Platelet Count 189 x1000/uL (130-400); RBC 5.21 m/cumm (4.00-5.20); RBC Distribution Width 13.6 % (11.7-14.6)
[2018-08-27 08:51] LABS: Hemoglobin A1C 5.8 % (4.5-6.2)
[2018-08-27 09:07] LABS: ALT 36 U/L (12-78); AST 17 U/L (15-37); Albumin 3.6 g/dL (3.4-5.0); Alkaline Phosphatase 97 U/L (46-116); Anion Gap 10.3 mmol/L (3-11); BUN 14 mg/dL (7-18); Bilirubin, Total 0.4 mg/dL (0.2-1.0); CO2 27.7 mmol/L (21.0-32.0); CREATININE 0.94 mg/dL (0.55-1.02); Calcium 8.8 mg/dL (8.5-10.1); Chloride 104 mmol/L (98-107); FREE T4 0.97 ng/dL (0.76-1.46); Glucose 113 mg/dL (70-100); Potassium 4.6 mmol/L (3.5-5.1); Sodium 142 mmol/L (136-145); TSH 2.88 uIU/mL (0.358-3.74); Total Protein 7.1 g/dL (6.4-8.2)
[2018-08-27 09:34] LABS: Cholesterol 255 mg/dL (50-200); HDL Cholesterol 35 mg/dL (40-60); LDL CHOLESTEROL 170 mg/dL (<100); Triglyceride 296 mg/dL (30-150)
== END 2018-08-27 07:36 ==
PROVIDERS: Nurse Practitioner Psychiatric/Mental Health; PCP Internal Medicine; Visit Provider Internal Medicine
DX: Z00.00 Encounter for general adult medical examination without abnormal findings (principal); F33.9 Major depressive disorder, recurrent, unspecified; Z79.899 Other long term (current) drug therapy
CPT/HCPCS: 36415; 80053; 80061; 83721; 85027; 83036; 84439; 84443

== ENCOUNTER 2018-09-20 09:32 | Outpatient (CLI) | payer OTHER, SELFPAY ==
--- NOTE | 2018-09-20 16:00 | DI.MAMMO_ITS ---
SYMPTOM/DIAGNOSIS: SCREENING, GENERAL ADULT MEDICAL EXAM, Z00.00 MAMMOGRAMS: Mammograms were interpreted according to the usual protocol including computer analysis with CAD system, tomosynthesis and C view imaging. Comparison is made with 2017 from [facility]. The breasts are composed of fatty density tissue, breast density, Category A. No suspicious masses or suspicious microcalcifications are seen. There is mild scarring in the subareolar region of the left breast. This is the location of previous surgical excision. IMPRESSION: Category 2, negative mammogram with benign findings. Yearly screening mammography is recommended. [facility] ASSESSMENT OF FINDINGS: Negative with benign findings. Category 2. Patient will receive a letter notifying them of these results. BI-RAD category A. The breasts are almost entirely fatty.
== END 2018-09-20 09:52 ==
PROVIDERS: PCP Internal Medicine
DX: Z00.00 Encounter for general adult medical examination without abnormal findings (principal); Z12.31 Encounter for screening mammogram for malignant neoplasm of breast
CPT/HCPCS: 77063; 77067

== ENCOUNTER 2020-07-15 03:57 | Outpatient (CLI) | payer OTHER, SELFPAY ==
[2020-07-15 12:28] LABS: ALT 53 U/L (14-59); AST 17 U/L (15-37); Alkaline Phosphatase 106 U/L (46-116); Anion Gap 13.3 mmol/L (3-11); BUN 10 mg/dL (7-18); Bilirubin, Total 0.5 mg/dL (0.2-1.0); CO2 26.7 mmol/L (21.0-32.0); CREATININE 0.8 mg/dL (0.55-1.02); Calcium 9.4 mg/dL (8.5-10.1); Calculated LDL 159 mg/dL (<100); Chloride 104 mmol/L (98-107); Cholesterol 249 mg/dL (<200); Glucose 137 mg/dL (74-106); HDL Cholesterol 46 mg/dL (40-60); Hemoglobin A1C 6.2 % (<5.7); Potassium 4.2 mmol/L (3.5-5.1); Sodium 144 mmol/L (136-145); Total Protein 7.6 g/dL (6.4-8.2); Triglyceride 223 mg/dL (<150)
== END 2020-07-15 03:58 | disposition home or self-care (01) ==
LOC: LOS 03:57
PROVIDERS: PCP Nurse Practitioner; Visit Provider Nurse Practitioner
DX: E78.5 Hyperlipidemia, unspecified (principal); R73.03 Prediabetes; E11.9 Type 2 diabetes mellitus without complications
CPT/HCPCS: 36415; 80053; 80061; 83036

== ENCOUNTER 2021-02-15 14:17 | Outpatient (CLI) | payer OTHER, SELFPAY ==
--- NOTE | 2021-02-15 14:00 | DI.RAD_ITS ---
Exam(s) XR SHOULDER RT COMPLETE 2+V EXAM: XR SHOULDER RT COMPLETE 2+V CLINICAL HISTORY: right shoulder pain. TECHNIQUE: 2D digital imaging was performed of the right shoulder. Two images were obtained. AP an d axillary views were obtained. COMPARISON: No exams were available for comparison FINDINGS: Exam limited by patient body habitus. BONES: No acute fracture is present. No bony destructive lesion is seen. JOINTS: No dislocation present. SOFT TISSUE: Normal. IMPRESSION: Unremarkable radiographs of the right shoulder. DATA REPOSITORY: RADIATION DOSE DELIVERED:
== END 2021-02-15 14:18 | disposition home or self-care (01) ==
LOC: DIORS 14:18
PROVIDERS: PCP Nurse Practitioner; Referring Provider Nurse Practitioner; Visit Provider Student in an Organized Health Care Education/Training Program
DX: M25.511 Pain in right shoulder (principal)
CPT/HCPCS: 73030

== ENCOUNTER 2021-04-21 02:12 | Outpatient (CLI) | payer OTHER, SELFPAY ==
--- NOTE | 2021-04-21 07:00 | DI.MRI_ITS ---
Exam(s) MR UPPER JOINT RT WO EXAM: MR UPPER JOINT RT WO CLINICAL HISTORY: R SHOULDER PAIN,tendinitis,impingement syndrome,bursitis, cervicalgia TECHNIQUE: Multiplanar multisequence MRI of the right shoulder was performed. COMPARISON: CR XR SHOULDER RT COMPLETE 2+V from 02/15/2021 FINDINGS: MARROW:There is no evidence of fracture, Hill-Sachs deformity, nor bony Bankart lesion. ROTATOR CUFF MECHANISM: AC JOINT/ACROMIUM: Minimal degenerative changes in the AC joint. No downgoing osteophytes. The unde rsurface of the acromion is flat. The acromion is slightly downsloping. There is no undersurface im pingement hook on the acromion evident no calcifications seen in the coracoacromial ligament.. There is no evidence of os acromiale. Supraspinatus: Mild tendinitis signal. No high-grade tear evident. No atrophy. There is, however, some small amount of fluid in the subacromial bursa Infraspinatus: Intact. No evidence of tear nor muscle atrophy. Teres Minor: Intact. No evidence of tear nor muscle atrophy. Subscapularis/anterior cuff: Intact. No abnormal signal at the level of the multipennate insertional fibers. No significant tear nor atrophy. BICEPS TENDON: Normally position in the intertubercular groove. No evidence of tear. No tenosynovitis. LABRUM: There is no obvious tear of the superior labrum posterior to the biceps insertion. No tear o f the posterior labrum. Inferior labrum appears intact. However, there is a septated cystic structu re measuring 8 millimeters by 5 millimeters by 3 millimeters intimately associated with the anterior labrum which has appearance of a paralabral cyst and on 1 image there is subtle fluid invagination be tween the anterosuperior labrum and the osseous glenoid. There is no evidence of avulsion of the anterior-inferior labrum, capsule, inferior glenohumeral liga ment complex nor disruption of the scapular periosteum to suggest the presence of a Bankart lesion. GLENOHUMERAL JOINT: No prominent joint effusion nor obvious loose intra-articular bodies. No chondra l defects. No osteophytes. No degenerative subarticular cysts. No evidence of capsular tear. The in ferior glenohumeral ligament is intact. QUADRILATERAL SPACE: No evidence of mass in the region of the axillary nerve and dorsal circumflex hu meral vessels. Visualized triceps muscle at this level appears unremarkable. IMPRESSION: 1. There is mild tendinitis signal in the supraspinatus but no obvious high-grade tear of this struct ure. Small amount of fluid in the subacromial bursa noted, probably an element of bursitis. No obvi ous soft tissue calcifications evident. Other muscular components of the rotator cuff mechanism are intact. No prominent impingement at the level of the AC joint/subacromial space. 2. Subtle suggestion of anterior labral tear. There is a septated cystic structure at this level deni suring 8x 5x 3 mm which is probably a paralabral cyst. No evidence of osseous Bankart lesion. 3. Biceps tendon is intact. DATA REPOSITORY:
== END 2021-04-21 02:32 ==
PROVIDERS: PCP Nurse Practitioner; Visit Provider Student in an Organized Health Care Education/Training Program
DX: M54.2 Cervicalgia (principal); M75.21 Bicipital tendinitis, right shoulder; M75.41 Impingement syndrome of right shoulder; M75.51 Bursitis of right shoulder; R93.7 Abnormal findings on diagnostic imaging of other parts of musculoskeletal system
CPT/HCPCS: 73221

== ENCOUNTER 2021-05-24 01:51 | Outpatient (CLI) | payer OTHER, SELFPAY ==
[2021-05-24 10:31] LABS: Source Nasal/Nares
[2021-05-24 12:41] LABS: COVID-19 PCR Negative (Negative)
== END 2021-05-24 01:52 | disposition home or self-care (01) ==
LOC: LBO 01:52
PROVIDERS: PCP Nurse Practitioner; Visit Provider Student in an Organized Health Care Education/Training Program
DX: Z20.822 Contact with and (suspected) exposure to COVID-19 (principal)
CPT/HCPCS: 87635

== ENCOUNTER 2021-09-14 01:10 | Outpatient (CLI) | payer OTHER, SELFPAY ==
[2021-09-14 10:33] LABS: Source Nasal/Nares
[2021-09-14 14:22] LABS: COVID-19 PCR Negative (Negative)
== END 2021-09-14 01:11 | disposition home or self-care (01) ==
LOC: LBO 01:10
PROVIDERS: PCP Nurse Practitioner; Visit Provider Student in an Organized Health Care Education/Training Program
DX: Z20.822 Contact with and (suspected) exposure to COVID-19 (principal); Z01.818 Encounter for other preprocedural examination
CPT/HCPCS: 87635

== ENCOUNTER 2021-09-16 07:28 | Day surgery (SDC) | payer OTHER, SELFPAY ==
[2021-09-16] VITALS (9 sets, daily range): BP systolic 81–158; BP diastolic 43–100; PULSE 75–105; RESP 16–23; TEMP 36.2–36.5; O2SAT 93–97; BMI 45.6
--- NOTE | 2021-09-16 06:30 | W.ANESPRE ---
General Info Date of Service Date Performed: 09/16/21 Height: 5 ft 4 in Weight: 120.656 kg Body Mass Index (BMI): 45.6 Surgical Procedure: Operation Date: 09/16/21 09:25 Proposed Procedure Side Surgeon p Shoulder Arthroscopy w/Extensive Debridement,Bicep Tenodesis,Subacromial Decompression/Poss. Labral Repair Right Alfredo Singh MD Meds Allergies and Home Medications Allergies Allergy/AdvReac Type Severity Reaction Status Date / Time morphine Allergy Mild rash at Verified 09/16/21 07:38 site quetiapine [From Seroquel] AdvReac Unknown pt reports Verified 09/16/21 07:38 don't tolerate, highly sedating Home Medication Medication Instructions Recorded zolpidem 10 mg tablet 10 mg PO QHS PRN #90 tab 03/29/21 albuterol sulfate 90 mcg/actuation 2 puff IH Q4H PRN #18 g 05/23/21 aerosol inhaler (ProAir HFA) clonazepam 1 mg tablet 1 mg PO BID PRN #56 tab 05/23/21 methylphenidate HCl 18 mg 18 mg PO DAILY #28 tab MDD 72mg 06/27/21 tablet,extended release 24 hr (Concerta) methylphenidate HCl 54 mg 54 mg PO DAILY #28 tab MDD 72mg 06/27/21 tablet,extended release 24 hr (Concerta) nicotine 14 mg/24 hr daily 1 patch TRANSDERMAL DAILY #28 ea 06/27/21 transdermal patch pantoprazole 40 mg tablet,delayed 40 mg PO DAILY #90 tab 06/27/21 release duloxetine 60 mg capsule,delayed 60 mg PO DAILY #90 cap 08/09/21 release promethazine 25 mg tablet 25 mg PO BID PRN #30 tab 08/09/21 aspirin 81 mg tablet,delayed 81 mg PO DAILY 14 Days #14 tab 09/16/21 release naproxen 250 mg tablet 250 - 500 mg PO BID PRN #40 tab 09/16/21 oxycodone 5 mg tablet 5 - 10 mg PO Q4H PRN #18 tab MDD 09/16/21 30 mg Current Visit Medications: Current Medications Generic Name Dose Route Start Last Admin Trade Name Freq PRN Reason Stop Dose Admin Ringer's Solution 1,000 mls @ 100 mls/hr 09/16/21 06:00 IV 10/11/21 23:59 INFUSION JAMES Cefazolin Sodium 3 gm in 100 mls @ 200 mls/hr 09/16/21 06:00 Ancef Premix IVPB 09/16/21 16:00 PREOP JAMES IV Miscellaneous Supplies 1 each 09/16/21 06:00 Iv Access IV 10/11/21 23:59 DIRECTED JAMES Sodium Chloride 0 ml 09/16/21 06:00 Normal Saline Flush 10 Ml Syr IV 10/11/21 23:59 PRN PRN Sodium Chloride 0 ml 09/16/21 06:00 Normal Saline 10 Ml Vial IJ 10/11/21 23:59 DIRECTED PRN Sterile Water 0 ml 09/16/21 06:00 Water,Injection,Sterile 10 Ml Vial IJ 10/11/21 23:59 DIRECTED PRN PFSH Active Problems Active Problems: Problem Status Onset Code Tendinitis of long head of biceps brachii of right shoulder M75.21 Labral tear of right hip joint S73.191A Impingement syndrome of right shoulder M75.41 Cervicalgia M54.2 Bursitis of right shoulder M75.51 Abscess of breast N61.1 Mastalgia N64.4 ADHD F90.9 Anxiety F41.9 Depression F32.9 Obstructive sleep apnea G47.33 GERD (gastroesophageal reflux disease) K21.9 Medical History Medical History AC joint pain Acute calculous cholecystitis (06/07/13) Chronic diarrhea Chronic right shoulder pain Encounter for screening laboratory testing for COVID-19 virus Encounter to establish care Enterocolitis Glaucoma Right Eye Hot flashes Hyperglycemia Hyperlipidemia Insomnia Low back pain Migraine Pain in left knee Tobacco abuse Surgical History Surgical History (Updated 09/16/21 @ 07:54 by Annabelle Busch) H/O laparoscopy History of arthroscopic knee surgery History of cholecystectomy History of hysterectomy History of knee surgery Hx of cholecystectomy S/P unilateral salpingo-oophorectomy Status post laparoscopic cholecystectomy (06/07/13) Tobacco Smoking/Tobacco Use Status: Current every day Tobacco Type: cigarettes Smoking packs per day: 0.5 Smoking cigarettes per day: 10.0 Years smoked: 25 Smoking pack-years: 12.50 Alcohol Alcohol Intake: current Alcohol intake frequency: a few times a month Alcohol type: beer Substance Use Substance use: Never Substance use type: does not use Vital Signs and Lab Results Vital Signs Most Recent Vital Signs in EMR: Temp Pulse Resp BP Pulse Ox 36.5 C 105 H 18 158/100 H 97 09/16/21 07:30 09/16/21 07:30 09/16/21 07:30 09/16/21 07:30 09/16/21 07:30 Lab Results Blood Type / Crossmatch: No Data to Display Complete Blood Count: No Data to Display Complete Metabolic Panel: No Data to Display Liver Function Panel: No Data to Display Coagulation Panel: No Data to Display Cardiac Panel: No Data to Display Arterial Blood Gas: No Data to Display Venous Blood Gas: No Data to Display Pancreas Panel: No Data to Display Thyroid Panel: No Data to Display Infectious Disease: Coronavirus (COVID-19)(PCR) Negative (Negative) 09/14/21 09:07 09/14/21 Coronavirus 2019 Source Nasal/Nares 09/14/21 09:07 09/14/21 Blood Cultures: No Data to Display Toxicology Panel: No Data to Display Panel: No Data to Display Imaging and Studies Imaging and Studies Study information below may be from another EMR and interpreted by another provider. Please see original notes in EMR for more complete details. EKG Summary: 11/2020: sinus. Anesthesia Assessment and Plan Anesthesia History Personal History: No History of Anesthesia Complications Family History: No Family History of Anesthesia Complications Exercise Tolerance Exercise Tolerance: Metabolic Equivalents>4 Cardiac & Pulmonary Exam Cardiac Exam: Normal S1/S2 Heart Sounds Pulmonary Exam: Clear Bilateral Breath Sounds Implantable Cardiac Device Does patient have a Pacemaker or an ICD?: No Airway Exam Known Difficult Airway: No Mallampati Class: 3 Mouth Opening: Narrow (< 3cm) Thyromental Distance: Less than 3 cm Neck Range of Motion: Full ROM Neck Circumference: Normal Teeth Condition: Other (upper bridge. ) ASA Classification ASA Score: ASA 3 Emergency Case?: No NPO Status NPO Status: NPO Clears >2 hours, Solids >8 hours Status Status: History of Hysterectomy Anesthesia Plan Resuscitation Status: Full Code Anesthesia Technique: General Anesthesia Airway Planned: Endotracheal Tube Pain Management: Surgeon and patient request nerve block Monitors Used: Standard Monitors Preoperative Comments:: 41 yo female for right shoulder arthroscopy. Sig PMHx: cervicalgia, anxiety/depression/ADHD, COPD, GERD, smoker, occ EtOH. Plan: GAETT, interscalene, superficial cervical plexus block.
[2021-09-16] MEDS: Lactated Ringers 1,000 ML 100 ML IV (08:32)
--- NOTE | 2021-09-16 09:42 | W.ANESNERVE ---
Nerve Block Single Injection Procedure Date and Time Date Performed: 09/16/21 Procedure Start: 09:28 Location Where Procedure Performed Procedure Location: Day Surgery Unit Reason Performed: Postoperative Analgesia Requesting Provider: Alfredo Singh Timeout Performed Timeout Performed: Yes Monitoring Used ECG, Blood Pressure and SpO2 Sterility Sterility: Hand Hygiene, Surgical Cap, Sterile Gloves and Chlorhexidine Sedation Given During Procedure Sedation Given (Indicate Dose Given): Versed IV Dose:: 2 mg Patient Mental Status Patient Mental Status: Sedate with meaningful communication Nerve Block 1st Nerve Block: Laterality: Right Block Type: Interscalene Needle / Catheter Used: 100mm SonoPlex II Local Anesthetic Bolus (Indicate Dose Given): Lidocaine used for local infiltration of skin, Injected in 3-5ml increments after negative blood aspiration and Bupivacaine 0.5% Dose:: 15 mL Additives (Indicate Dose Given): Epinephrine to make 1:400,000 (2.5mcg/ml) Dose:: 2.5 mcg/ml, Decadron Dose:: 1.5 mg and Precedex Dose:: 30 mcg Ultrasound: Sterile probe cover and gel used Ultrasound Image Saved?: Yes Nerve Stimulator: Not Used Paresthesia: None Procedure Tolerated: No Complications Procedure Outcome: Successful Performed By: Von Kovacs 2nd Nerve Block: Laterality: Right Block Type: Superficial Cervical Plexus Needle / Catheter Used: 100mm SonoPlex II Local Anesthetic Bolus (Indicate Dose Given): Bupivacaine 0.5% Dose:: 5 mL Additives (Indicate Dose Given): Epinephrine to make 1:400,000 (2.5mcg/ml) Dose:: 2.5 mcg/mL, Decadron Dose:: 0.5 mg and Precedex Dose:: 10 mcg Ultrasound: Sterile probe cover and gel used Ultrasound Image Saved?: Yes Nerve Stimulator: Not Used Paresthesia: None Procedure Tolerated: No Complications Procedure Outcome: Successful Performed By: Von Kovacs
[2021-09-16] MEDS: EPINEPHrine 30 MG/30 ML VIAL (12:29)
[2021-09-16] MEDS: Lidocaine 1% Multi-Dose W/EPI 1/100,000 50 ML VIAL (12:37)
--- NOTE | 2021-09-16 13:01 | W.PM.DSUDISC ---
Discharge Plan Disposition Patient Disposition: HOME Condition: Stable Discharge Details Reason For Visit: Right shoulder surgery Attending Provider: Alfredo Singh Primary Care Provider: Odette Zapata Home Meds and New Rx's Prescriptions: New naproxen 250 mg tablet 250 - 500 mg PO BID PRNQty: 40 0RF Rx Instructions: take with a meal aspirin 81 mg tablet,delayed release (DR/EC) 81 mg PO DAILY 14 Days Qty: 14 0RF oxycodone 5 mg tablet 5 - 10 mg PO Q4H MDD 30 mg PRN (Reason: moderate to severe pain) Qty: 18 0RF Continued zolpidem 10 mg tablet 10 mg PO QHS PRN (Reason: sleep) Qty: 90 1RF pantoprazole 40 mg tablet,delayed release (DR/EC) 40 mg PO DAILY Qty: 90 3RF nicotine 14 mg/24 hr patch 24 hour 1 patch transdermal DAILY Qty: 28 0RF methylphenidate HCl [Concerta] 18 mg tablet extended release 24hr 18 mg PO DAILY MDD 72mg Qty: 28 0RF methylphenidate HCl [Concerta] 54 mg tablet extended release 24hr 54 mg PO DAILY MDD 72mg Qty: 28 0RF albuterol sulfate [ProAir HFA] 90 mcg/actuation HFA aerosol inhaler 2 puff IH Q4H PRN (Reason: wheezing) Qty: 18 12RF clonazepam 1 mg tablet 1 mg PO BID PRN (Reason: anxiety) Qty: 56 2RF duloxetine 60 mg capsule,delayed release(DR/EC) 60 mg PO DAILY Qty: 90 2RF promethazine 25 mg tablet 25 mg PO BID PRN (Reason: nausea and vomiting) Qty: 30 0RF Discontinued naproxen sodium [Aleve] 220 mg capsule 220 mg PO BID PRN0RF ibuprofen 200 mg tablet 200 mg PO Q6H PRN0RF Discharge Instructions Additional Instructions: Surgery: Right shoulder arthroscopy with labral repair, biceps tenodesis, extensive debridement, distal clavicle excision, and subacromial decompression. Activity: For 6 weeks, you should keep your arm at your side in a neutral position at all times except for physical therapy. Do not try to lift or raise your arm using your own muscles. You should use the sling whenever you are out of the house. You may have to adjust the abduction pillow or remove it for comfort. At home it is best to remove the sling and rest the arm on a pillow at your side or support the operative side with your other hand. You may allow the arm to dangle at your side. A physical therapy prescription will be sent electronically to begin in about 3 weeks. No external rotation or forward flexion past 90 degrees for 3 weeks. No external rotation past 30 degrees or forward flexion past 120 degrees for 6 weeks. Prescriptions: Aspirin 81 mg take 1 daily to prevent a blood clot for 2 weeks Naproxen 250 mg take 1-2 every 12 hours with a meal as needed for moderate pain Oxycodone 5 mg take 1-2 every 4-6 hours as needed for severe pain You may use [id number] Tylenol (acetaminophen) as needed for mild pain. These pain medications may be taken all at once or in different combinations as needed. Also, recommend Colace (docusate) as a stool softener as surgery and pain medicine cause constipation. Dressings: Remove shoulder bandage after 3 days. Leave the sticky Steri-Strips in place until they fall off or remove them after you shower. Cover the incisions with Band-Aids or leave them open to air. You may shower after 5 days. Follow-up: 10-[address] Singh You may take off the leg compression stockings this evening at home. You may also leave them on a few days longer if you have a history of leg swelling or edema. Let us know right away if you develop any redness, drainage, fevers, chest pain, or trouble breathing. Do not drink alcohol or drive for at least 24 hours after anesthesia. Please call the office during business hours with any questions or concerns. Referrals: Alfredo Singh MD [ [facility] STAFF PHYSICIAN] - Discharge Orders Discharge Orders: Discharge Order (Routine); Ordered 09/16/21 Ordered By: Alfredo Singh DS: Diagnosis Discharge Diagnosis (1) Tendinitis of long head of biceps brachii of right shoulder: Status: Acute (2) Impingement syndrome of right shoulder: Status: Acute (3) Bursitis of right shoulder: Status: Acute (4) Labral tear of shoulder: Status: Acute (5) Pain in right acromioclavicular joint: Status: Acute
--- NOTE | 2021-09-16 13:07 | W.ANESPOSTOP ---
Postoperative Evaluation Date, Time and Location Date Performed: 09/16/21 Time Performed: 13:07 Patient Location: PACU Vital Signs Most Recent Imported Vital Signs: Most Recent Vital Signs Temp Pulse Resp BP Pulse Ox 36.5 C 85 20 104/44 L 96 09/16/21 12:53 09/16/21 12:53 09/16/21 12:53 09/16/21 12:53 09/16/21 12:53 Pain Score Most Recent Pain Score: Most Recent Pain Score Pain Level 0 09/16/21 12:53 Assessment Mental Status: Arousable with meaningful communication Airway and Respiratory Function: Patent airway with normal (patient baseline) respiratory exam and Other (stating breathing feels hard, discussed diaphram and ISB. ) Cardiovascular Function: Hemodynamically Stable Hydration Status: Adequately Hydrated Nausea & Vomiting: No Nausea or Vomiting Pain: Pain is tolerable per patient Peripheral Nerve Block: Regional nerve block not resolved at time of post operative discharge
--- NOTE | 2021-09-16 13:10 | ROE_ITS ---
Date of service: 09/16/21 Time of Service: 13:02 Operative Note Operative Note DATE OF PROCEDURE: 09/16/21 PRE-OP DIAGNOSIS: Right: 1. Labral tear 2. LHB tendinopathy 3. Bursitis 4. Impingement 5. AC joint pain POST-OP DIAGNOSIS: same PROCEDURE: Right: 1. Arthroscopic labral repair, CPT #06475: This involved suture anchor repair of the anterior labrum tear. 2. Arthroscopic biceps tenodesis, CPT# 40390. This involved arthroscopically suturing and reattaching the long head of the biceps tendon to the proximal humerus at the superior margin of the bicipital groove with a screw at the correct tension. 3. Extensive debridement, CPT# 75147. This involved using arthroscopic hand instruments, power instruments, and radiofrequency instruments to release the long head of the biceps tendon and debride areas of labral tearing, synovitis, and chondromalacia about the glenoid labrum tear working within the glenohumeral joint anteriorly, superiorly and posteriorly. 4. Subacromial decompression with partial acromioplasty, CPT# 63426. This involved using arthroscopic power instruments and a radiofrequency wand to complete a bursectomy and remove bone spurs on the undersurface of the acromion. 5. Arthroscopic distal clavicle excision, CPT# 12559. This involved arthroscopically exposing the underside of the acromioclavicular joint, smoothing out bone spurs, and removing approximately 5 mm of the distal clavicle so there was no bone left engaging the acromion. The primary teaching assistant was medically required in order to help assist in techniques above, which require positioning the arm, holding the arthroscope, and manipulating multiple instruments and sutures at the same time. This cannot be done without the help of an experienced primary teaching assistant. SURGEON: Alfredo Singh RUM PROCESSING OPERATOR: Cely Ware ANESTHESIA TYPE: Local By Surgeon, General LMA/ETT and Primary Nerve Block Refer to Anesthesia Record ESTIMATED BLOOD LOSS: 10 PATHOLOGY: none sent COMPLICATIONS: None Patient was transported to: PACU Patient's condition: stable Implants: Arthrex: 4.75mm SwiveLocks x 1 and 2.9mm PushLock x 1 Indications: The patient was diagnosed with the above conditions and appropriately indicated for surgical intervention. Please see complete medical record for details. Findings: Exam under anesthesia: Full range of motion, no true instability. Glenohumeral joint: Moderate anterior superior synovitis. No significant SLAP tear. Moderate long head biceps injection. Focal anterior labral tear with a small cyst below the attachment. Mild adjacent glenoid chondromalacia. Mild bicipital groove chondromalacia with biceps sling fraying. Intact subscapularis. Intact articular sided rotator cuff. Subacromial space: Moderate bursitis. Intact bursal rotator cuff. Moderate impinging distal clavicle and acromion. Minimal inferior acromial bone spurring. Procedure Description: In the operating room, general anesthesia was induced. Bilateral shoulders were examined. The patient was positioned in the beachchair position. All bony prominences were well-padded. Preoperative antibiotics were administered. The shoulder was prepped and draped in the usual sterile fashion. The correct patient, procedure, and side of the procedure were all verified prior to incision. Starting through the posterior portal a standard complete diagnostic arthroscopy was performed of the glenohumeral joint including inspection of the long head of the biceps, anterior and superior labrum, subscapularis tendon, supraspinatus and infraspinatus tendons, and axillary recess. The glenoid and humeral head cartilage as well as the posterior labrum were inspected from an anterior viewing portal. Significant findings and interventions noted above. A rigid cannula was inserted anteriorly. An all-arthroscopic suprapectoral biceps tenodesis was performed through an anterior portal using a Loop N Tack method with a SutureTape FiberLink cinched around and through the tendon. The biceps was tenotomized from the labrum and fixated with a suture anchor at the superior margin of the bicipital groove at the correct tension. The biceps intra-articular segment demonstrated diminutive size and degenerative poor tissue quality. The anterior labral tear was then probed and was limited to just above the equator anteriorly. The footed rasp was used to prepare glenoid to optimize labral healing. The mechanical shaver was used to confirm debridement of frayed tissue as well as any paralabral cyst. The 90 degree lasso was used to shuttle a suture tape FiberLink around the anterior labrum taking care to avoid including any significant amount of anterior capsule or MGHL. The SwiveLock drill guide and drill were used followed by loading of the repair stitch on to push lock anchor, which was successfully deployed completing repair. Starting through the posterior portal, the arthroscope was directed into the subacromial space. A lateral 50 yard line lateral portal was omitted. A combination of power instruments and a radiofrequency ablator were used to debride bursitis anteriorly, posteriorly, and laterally as well as expose and smooth bone spurring on the undersurface of the acromion. The coracoacromial ligament was partially released. The bursectomy was completed viewing laterally and working from posteriorly and the rotator cuff was thoroughly inspected with findings noted above. The anterior portal was redirected towards the undersurface of the AC joint. A shaver and electrocautery device were used to clear soft tissue from the undersurface of the AC joint. The distalmost few mm of the distal clavicle was then removed and smoothed. Care was taken to ensure that proper amount of bone was removed and there was no engaging bone left behind. The shoulder was drained of arthroscopic fluid. All portal sites were copiously irrigated. These incisions were closed using 3-0 Monocryl in a buried fashion and then covered with Mastisol, Steri-Strips, Xeroform, dry gauze, and ABDs. The dressings were covered and secured with Medipore tape. The operative extremity was placed into a sling for immobilization. The patient awoke from anesthesia without complication and was transferred to the recovery room in a stable condition.
== END 2021-09-16 14:45 | disposition home or self-care (01) ==
PROVIDERS: PCP Nurse Practitioner; Visit Provider Student in an Organized Health Care Education/Training Program
PROC: (CPT 29805; principal; 2021-09-16 09:15)
DX: M75.21 Bicipital tendinitis, right shoulder (principal); M75.51 Bursitis of right shoulder; M75.41 Impingement syndrome of right shoulder; G47.33 Obstructive sleep apnea (adult) (pediatric); K21.9 Gastro-esophageal reflux disease without esophagitis; M24.111 Other articular cartilage disorders, right shoulder; M94.211 Chondromalacia, right shoulder
CPT/HCPCS: 29806; 29828; 29824; 29826; 29823; 76942; J0131; J0171; J1100; J1885; J2250; J2370; J2405; J2704

== ENCOUNTER 2021-09-17 01:10 | Emergency (ER) | payer OTHER, SELFPAY ==
[2021-09-17] VITALS (13 sets, daily range): BP systolic 152–165; BP diastolic 93–99; PULSE 86–107; RESP 20–24; TEMP 36.6; O2SAT 93–96
--- NOTE | 2021-09-17 01:45 | DI.CT_ITS ---
Exam(s) CT RENAL COLIC WO EXAM: CT RENAL COLIC WO INDICATION: left flank pain. COMPARISON: CT CT ABDOMEN PELVIS W from 06/10/2018 TECHNIQUE: CT examination was performed without contrast administration. FINDINGS: Images obtained through the lung bases show areas of probable atelectasis at the right lung base, co nsolidation not excluded.. Visualized portions of the liver and spleen appear intact. Visualized portions of the pancreas are unremarkable. Gallbladder and bile ducts are CT normal. Abdominal aorta is of normal diameter. No significant abdominal wall hernia. No significant abdominal or pelvic adenopathy. Adrenals appear normal bilaterally. The kidneys are normal in size and shape. There is no evidence of a renal mass, hydronephrosis, or n ephrolithiasis. No ureteral dilatation or calcification identified. Urinary bladder is unremarkable in appearance. IMPRESSION: Presumed right basilar pulmonary atelectasis, otherwise negative noncontrast abdominal and pelvic CT. No urinary tract calcification or obstruction. RADIATION DOSE DELIVERED: 1,255.59mGy.cm DLP 1,255.59mGy.cm Total DLP !Error CTDIvol RADIATION OPTIMIZATION: All CT scans at this facility use at least one of these dose optimization te chniques: automated exposure control; mA and/or kV adjustment per patient size (includes targeted exa ms where dose is matched to clinical indication); or iterative reconstruction.
[2021-09-17 02:00] LABS: Bilirubin Negative (Negative); Blood Small (Negative); Clarity Clear (Clear); Glucose 250 mg/dL (Negative); Ketones Negative (Negative); Leukocyte Esterase Negative (Negative); Nitrite Negative (Negative); Specific Gravity >= 1.030 (1.005-1.025); Urobilinogen 0.2 EU/dL (Up TO 0.2); pH 6.5 (5-8)
--- NOTE | 2021-09-17 02:03 | W.ED.GENAD ---
Discharge Plan Disposition Patient Disposition: HOME Condition: Stable Discharge Details Clinical Impression: Acute left flank pain Primary Care Provider: Odette Zapata ED Provider: Akshat Manuel Home Meds and New Rx's Prescriptions: Continued zolpidem 10 mg tablet 10 mg PO QHS PRN (Reason: sleep) Qty: 90 1RF pantoprazole 40 mg tablet,delayed release (DR/EC) 40 mg PO DAILY Qty: 90 3RF nicotine 14 mg/24 hr patch 24 hour 1 patch transdermal DAILY Qty: 28 0RF methylphenidate HCl [Concerta] 18 mg tablet extended release 24hr 18 mg PO DAILY MDD 72mg Qty: 28 0RF methylphenidate HCl [Concerta] 54 mg tablet extended release 24hr 54 mg PO DAILY MDD 72mg Qty: 28 0RF albuterol sulfate [ProAir HFA] 90 mcg/actuation HFA aerosol inhaler 2 puff IH Q4H PRN (Reason: wheezing) Qty: 18 12RF clonazepam 1 mg tablet 1 mg PO BID PRN (Reason: anxiety) Qty: 56 2RF duloxetine 60 mg capsule,delayed release(DR/EC) 60 mg PO DAILY Qty: 90 2RF promethazine 25 mg tablet 25 mg PO BID PRN (Reason: nausea and vomiting) Qty: 30 0RF naproxen 250 mg tablet 250 - 500 mg PO BID PRNQty: 40 0RF Rx Instructions: take with a meal aspirin 81 mg tablet,delayed release (DR/EC) 81 mg PO DAILY 14 Days Qty: 14 0RF oxycodone 5 mg tablet 5 - 10 mg PO Q4H MDD 30 mg PRN (Reason: moderate to severe pain) Qty: 18 0RF Discharge Instructions Instructions: Flank Pain (ED) Additional Instructions: Please rest at home. Take medication as prescribed. Please contact your primary care physician to arrange follow-up. Return to the ER immediately for any worsening pain or new concerning symptoms. Referrals: Odette Zapata NP [Primary Care Provider] - Discharge Data Discharge Date/Time-TO BE ENTERED AT DEPARTURE: 09/17/21 06:34 Medical Decision Making 205 --41-year-old female presents 1 day status post right shoulder surgery now with new onset left flank pain worsening since yesterday late afternoon. Pain rating to left lower abdomen. Concern for renal colic. Patient has no history of kidney stones. Plan for CT of the abdomen pelvis. I will give Toradol 15 mg IV and IV fluid bolus. -- Patient reassessed and pain did improve with Toradol -- Labs reviewed and few RBCs noted in urine. Leukocytosis is noted which I suspect is secondary to immediate postoperative state. -- CT of the abdomen pelvis was interpreted by radiology: FINDINGS: Lungs: Right basilar atelectasis. Liver: Normal. No mass. Gallbladder and bile ducts: Cholecystectomy. Pancreas: Normal. No ductal dilation. Spleen: Normal. No splenomegaly. Adrenal glands: Normal. No mass. Kidneys and ureters: Normal. No hydronephrosis. Stomach and bowel: Unremarkable. No obstruction. No mucosal thickening. Appendix: No evidence of appendicitis. Intraperitoneal space: Unremarkable. No free air. No significant fluid collection. Vasculature: Unremarkable. No abdominal aortic aneurysm. Lymph nodes: Unremarkable. No enlarged lymph nodes. Urinary bladder: Unremarkable as visualized. Reproductive: Unremarkable as visualized. Bones/joints: Unremarkable. No acute fracture. Soft tissues: Unremarkable. Other findings: There is significant artifact on this examination, limiting evaluation. IMPRESSION: No evidence of nephrolithiasis or acute obstructive uropathy. -- Patient was reassessed. Results were discussed with the patient. Ida notes pain returning. Dilaudid 1 mg IV was administered for pain. 624 --patient reassessed and notes significant improvement in pain and she is requesting discharge. Plan will be for her to rest today at home and follow-up with PCP on Sunday. Disposition decision was made weighing the risks and benefits of hospitalization versus outpatient treatment, the risk for further decompensation, and the patient's wishes. The patient was stable and requested discharge. Prior to discharge, my usual and customary return precautions were reviewed with the patient - this included follow-up instructions and reason to return to the emergency department if condition worsens, does not improve as expected, or other new concerns arise. Lab Data Lab results reviewed: Yes I reviewed the patient's lab results. Labs: Laboratory Tests Range/Units 09/17/21 09/17/21 09/17/21 01:50 02:30 02:30 WBC (4.4-10.8) 10^3/uL 19.52 H RBC (3.93-5.22) 10^6/uL 4.48 Hgb (11.2-15.7) g/dL 13.1 Hct (36.0-46.0) % 41.0 MCV (80-95) fL 92 MCH (27.0-33.0) pg 29.2 MCHC (32.0-36.0) % 32.0 RDW (11.7-14.6) % 13.1 Plt Count (130-400) 10^3/uL 190 MPV (8.0-11.0) fL 11.9 H Immature Gran % 1.5 Neutrophils % 79.7 Lymphocytes % 14.3 Monocytes % 4.0 Eosinophils % 0.2 Basophils % 0.3 Nucleated RBC % (0.0-0.3) % 0.0 Absolute Neutrophils (1.2-6.7) 10^3/uL 15.56 H Absolute Lymphocytes (1.2-3.4) 10^3/uL 2.79 Absolute Monocytes (0.1-0.8) 10^3/uL 0.78 Absolute Eosinophils (0.0-0.7) 10^3/uL 0.04 Absolute Basophils (0.0-0.2) 10^3/uL 0.06 Sodium (136-145) mmol/L 138 Potassium (3.5-5.1) mmol/L 4.7 Chloride (98-107) mmol/L 104 Carbon Dioxide (21.0-32.0) mmol/L 24.1 Anion Gap (3-11) mmol/L 9.9 BUN (7-18) mg/dL 14 Creatinine (0.55-1.02) mg/dL 0.9 Estimated GFR/1.73 m2 (mL/min/1.73m2) >= 60.00 Glucose (74-106) mg/dL 233 H Calcium (8.5-10.1) mg/dL 8.4 L Urine Color (Yellow) Yellow Urine Clarity (Clear) Clear Urine pH (5-8) 6.5 Ur Specific [place] (1.005-1.025) >= 1.030 H Urine Protein (Negative) mg/dL Negative Urine Ketones (Negative) mg/dL Negative Urine Blood (Negative) Small H Urine Nitrite (Negative) Negative Urine Bilirubin (Negative) Negative Urine Urobilinogen (Up TO 0.2) EU/dL 0.2 Ur Leukocyte Esterase (Negative) Negative Urine RBC (0-2) HPF 5-10 H Urine WBC (0-5) HPF 0-2 Ur Epithelial Cells (Negative) HPF Many Urine Crystals (Negative) HPF Negative Urine Bacteria (Negative) HPF Few Urine Mucus (Negative) Moderate Urine Other (Negative) Rare Yeast Ur Culture Indicated? No/Sq. Contamination Urine Glucose (Negative) mg/dL 250 H HPI General Mode of arrival: ambulatory. Date/Time Provider Initiated Documentation: 09/17/21 01:28. Limitations to Documentation: no limitations. Information obtained by: patient. HPI Narrative: 41-year-old female presents after having had uncomplicated shoulder surgery yesterday with chief complaint of left flank pain. Patient notes pain started around 5 PM and has persisted and worsened. Pain localized to left low back and flank radiating to left abdomen. Pain now severe 12/21. Patient has she took oxycodone and 1 tablet of naproxen around midnight. Patient has no associated nausea or vomiting. No diarrhea. No urinary symptoms. She has no history of kidney stone. Related Data Home Medications Medication Instructions Recorded Confirmed zolpidem 10 mg tablet 10 mg PO QHS PRN sleep #90 tabs 03/29/21 09/17/21 albuterol sulfate 90 mcg/actuation 2 puff inhalation Q4H PRN wheezing 05/23/21 09/17/21 aerosol inhaler (ProAir HFA) #18 grams clonazepam 1 mg tablet 1 mg PO BID PRN anxiety #56 tabs 05/23/21 09/17/21 methylphenidate HCl 18 mg 18 mg PO DAILY #28 tabs 06/27/21 09/17/21 tablet,extended release 24 hr (Concerta) methylphenidate HCl 54 mg 54 mg PO DAILY #28 tabs 06/27/21 09/17/21 tablet,extended release 24 hr (Concerta) nicotine 14 mg/24 hr daily 1 patch transdermal DAILY #28 ea 06/27/21 09/17/21 transdermal patch pantoprazole 40 mg tablet,delayed 40 mg PO DAILY #90 tabs 06/27/21 09/17/21 release duloxetine 60 mg capsule,delayed 60 mg PO DAILY #90 caps 08/09/21 09/17/21 release promethazine 25 mg tablet 25 mg PO BID PRN nausea and 08/09/21 09/17/21 vomiting #30 tabs aspirin 81 mg tablet,delayed 81 mg PO DAILY Prevent blood clot 09/16/21 09/17/21 release 14 days #14 tabs naproxen 250 mg tablet 250 - 500 mg PO BID PRN #40 tabs 09/16/21 09/17/21 oxycodone 5 mg tablet 5 - 10 mg PO Q4H PRN moderate to 09/16/21 09/17/21 severe pain #18 tabs Previous Rx's Medication Instructions Recorded zolpidem 10 mg tablet 10 mg PO QHS PRN sleep #90 tabs 03/29/21 albuterol sulfate 90 mcg/actuation 2 puff inhalation Q4H PRN wheezing 05/23/21 aerosol inhaler (ProAir HFA) #18 grams clonazepam 1 mg tablet 1 mg PO BID PRN anxiety #56 tabs 05/23/21 methylphenidate HCl 18 mg 18 mg PO DAILY #28 tabs 06/27/21 tablet,extended release 24 hr (Concerta) methylphenidate HCl 54 mg 54 mg PO DAILY #28 tabs 06/27/21 tablet,extended release 24 hr (Concerta) nicotine 14 mg/24 hr daily 1 patch transdermal DAILY #28 ea 06/27/21 transdermal patch pantoprazole 40 mg tablet,delayed 40 mg PO DAILY #90 tabs 06/27/21 release duloxetine 60 mg capsule,delayed 60 mg PO DAILY #90 caps 08/09/21 release promethazine 25 mg tablet 25 mg PO BID PRN nausea and 08/09/21 vomiting #30 tabs aspirin 81 mg tablet,delayed 81 mg PO DAILY Prevent blood clot 09/16/21 release 14 days #14 tabs naproxen 250 mg tablet 250 - 500 mg PO BID PRN #40 tabs 09/16/21 oxycodone 5 mg tablet 5 - 10 mg PO Q4H PRN moderate to 09/16/21 severe pain #18 tabs Allergies Allergy/AdvReac Type Severity Reaction Status Date / Time morphine Allergy Mild rash at Verified 09/17/21 01:24 site quetiapine [From Seroquel] AdvReac Unknown pt reports Verified 09/17/21 01:24 don't tolerate, highly sedating General Stated Complaint: FlankPain JAIME: 3 Review of Systems All systems reviewed & are unremarkable except as noted in HPI and below Constitutional Constitutional: Denies fever(s) Genitourinary Genitourinary: Reports as per HPI and Denies dysuria PFSH All Active Problems (Updated 09/17/21 @ 06:18 by Akshat Manuel MD) Depression (Chronic) GERD (gastroesophageal reflux disease) (Chronic) Obstructive sleep apnea (Chronic) prescribed CPAP but does not wear it Anxiety (Chronic) ADHD (Acute) Mastalgia (Acute) Unilateral Breast mass 09/21/15 Bursitis of right shoulder (Acute) Impingement syndrome of right shoulder (Acute) Tendinitis of long head of biceps brachii of right shoulder (Acute) Cervicalgia (Acute) Abscess of breast (Acute) Labral tear of shoulder (Acute) Pain in right acromioclavicular joint (Acute) Acute left flank pain (Acute) Medical History AC joint pain Acute calculous cholecystitis (06/07/13) Chronic diarrhea Chronic right shoulder pain Encounter for screening laboratory testing for COVID-19 virus Encounter to establish care Enterocolitis Glaucoma Right Eye Hot flashes Hyperglycemia Hyperlipidemia Insomnia Low back pain Migraine Pain in left knee Tobacco abuse Surgical History H/O laparoscopy History of arthroscopic knee surgery History of cholecystectomy History of hysterectomy History of knee surgery Hx of cholecystectomy S/P unilateral salpingo-oophorectomy Status post laparoscopic cholecystectomy (06/07/13) Family History Mother Anxiety Lung cancer Son Substance abuse Depression Sister Alcohol abuse Anxiety Depression Maternal Grandmother Alcohol abuse Lung cancer Cervical cancer Daughter Asthma Depression Social History Smoking/Tobacco Use Status: Current every day Tobacco Type: cigarettes Smoking packs per day: 0.5 Smoking cigarettes per day: 10.0 Years smoked: 25 Smoking pack-years: 12.50 Smoking risk assessment performed?: Yes Alcohol Intake: current Alcohol Intake frequency: a few times a month Alcohol type: beer Drug use: Never Substance use type: does not use Adopted: No Caregiver/Support person: No Foster care: No Household members: spouse Housing: apartment Do you need help understanding health information?: Rarely current occupation: [employer] Operator, [employer]- [employer] Sexually active: Yes Do you think of yourself as: straight/heterosexual Current gender identity: female Do you feel safe at home: Yes Do you feel safe in your relationship?: Yes Exam Const General: cooperative and no acute distress Limitations: physical limitations (pain ) HENMT Mouth: moist mucous membranes Resp Auscultation: clear to auscultation bilaterally, no rales, no rhonchi and no wheezes Cardio Rate: regular rate and not tachycardic Rhythm: regular rhythm GI Palpation: soft, not firm, no guarding, no masses, not rigid and tender in the LLQ Back/Spine/Pelvis Back: CVA tenderness (lt) Skin General skin exam: no rashes or lesions noted Rashes: no rashes (on back) Neuro General: patient alert, patient awake, patient oriented x3 and tone normal Extrem General: no edema Right upper extremity: shoulder/upper arm Details: other (in sling) Psych Appearance: grossly normal Mental Status: mental status grossly normal Speech and Movement: speech and movement normal Course Vital Signs Vital signs: Vital Signs Temperature 36.6 C 09/17/21 01:21 Pulse 107 H 09/17/21 01:21 Respiratory Rate 20 09/17/21 01:21 Blood Pressure 165/99 H 09/17/21 01:21 Pulse Oximetry 93 09/17/21 01:21 Temperature 36.6 C 09/17/21 01:21 Temperature Source Skin 09/17/21 01:21 Pulse 107 H 09/17/21 01:21 Respiratory Rate 20 09/17/21 01:21 Respiratory Effort 09/17/21 01:27 Blood Pressure 165/99 H 09/17/21 01:21 Blood Pressure Position Sitting 09/17/21 01:21 Pulse Oximetry 93 09/17/21 01:21 Oxygen Delivery Method Room Air 09/17/21 01:21 Oxygen Flow Rate 0 09/17/21 01:21 Pain Level 8 09/17/21 01:21 PAWSS Have you Been Recently Intoxicated or Drunk Within the Last 30 days?: No Have you Ever Experienced Previous Episodes of Alcohol Withdrawal?: No Have you ever Experienced Withdrawal Seizures?: No Have you ever Experienced Delirium Tremens(DT)s?: No Have you ever undergone Alcohol Rehabilitation Treatment (i.e, inpt ot outpatient treatment programs)?: No Have you ever Experienced Blackouts?: No Have you ever Combined Alcohol with other Downers within the last 90 days?: No Have you ever Combined Alcohol with any other Substance of Abuse during the last 90 days?: No Positive Blood Alcohol level on Presentation? [PCS.BAL]: No Evidence of Increased Autonomic Activity (i.e. HR>120, tremor, sweating, agitation, nausea)?: No Result: 0
[2021-09-17 02:28] LABS: Epithelial Cells Many HPF (Negative); WBC 0-2 HPF (0-5)
[2021-09-17 02:29] LABS: Bacteria Few HPF (Negative); C & S Indicated? No/Sq. Contamination; Crystals Negative HPF (Negative); Mucus Moderate (Negative); Other Cells Rare Yeast (Negative)
[2021-09-17] MEDS: Lactated Ringers 1,000 ML 1000 ML IV (02:44)
[2021-09-17] MEDS: Ketorolac 15 MG/ML VIAL IVP (02:48)
[2021-09-17 02:51] LABS: Abs Immature Grans 0.29 10^3/uL (0.0-0.06); Absolute Lymphocyte Count 2.79 10^3/uL (1.2-3.4); Absolute Monocyte Count 0.78 10^3/uL (0.1-0.8); Basophils % 0.3; Eosinophils % 0.2; HGB 13.1 g/dL (11.2-15.7); Immature Grans % 1.5; Lymphocytes % 14.3; MCH 29.2 pg (27.0-33.0); MCV 92 fL (80-95); MPV 11.9 fL (8.0-11.0); Neutrophils % 79.7; Platelet Count 190 10^3/uL (130-400); RBC 4.48 10^6/uL (3.93-5.22); RDW 13.1 % (11.7-14.6); RDW-SD 43.5 fL; WBC 19.52 10^3/uL (4.4-10.8)
[2021-09-17 02:56] LABS: Absolute Basophil Count 0.06 10^3/uL (0.0-0.2); Absolute Eosinophil Count 0.04 10^3/uL (0.0-0.7); Absolute Neutrophil Count 15.56 10^3/uL (1.2-6.7)
[2021-09-17 03:10] LABS: Anion Gap 9.9 mmol/L (3-11); BUN 14 mg/dL (7-18); CO2 24.1 mmol/L (21.0-32.0); CREATININE 0.9 mg/dL (0.55-1.02); Calcium 8.4 mg/dL (8.5-10.1); Chloride 104 mmol/L (98-107); Glucose 233 mg/dL (74-106); Potassium 4.7 mmol/L (3.5-5.1); Sodium 138 mmol/L (136-145)
--- NOTE | 2021-09-17 04:39 | DI.VRAD_ITS ---
PROCEDURE INFORMATION: Exam: CT Abdomen And Pelvis Without Contrast Exam date and time: 09/17/2021 3:17 AM Age: 41 years old Clinical indication: Abdominal pain; Flank; Left; Prior surgery; Surgery date: 3-7 days post-operative; Surgery type: Right shoulder surgery; Additional info: New onset left flank pain, recent shoulder surgery TECHNIQUE: Imaging protocol: Computed tomography of the abdomen and pelvis without contrast. Radiation optimization: All CT scans at this facility use at least one of these dose optimization techniques: automated exposure control; mA and/or kV adjustment per patient size (includes targeted exams where dose is matched to clinical indication); or iterative reconstruction. COMPARISON: CT ABDOMEN PELVIS W 06/10/2018 5:09 PM FINDINGS: Lungs: Right basilar atelectasis. Liver: Normal. No mass. Gallbladder and bile ducts: Cholecystectomy. Pancreas: Normal. No ductal dilation. Spleen: Normal. No splenomegaly. Adrenal glands: Normal. No mass. Kidneys and ureters: Normal. No hydronephrosis. Stomach and bowel: Unremarkable. No obstruction. No mucosal thickening. Appendix: No evidence of appendicitis. Intraperitoneal space: Unremarkable. No free air. No significant fluid collection. Vasculature: Unremarkable. No abdominal aortic aneurysm. Lymph nodes: Unremarkable. No enlarged lymph nodes. Urinary bladder: Unremarkable as visualized. Reproductive: Unremarkable as visualized. Bones/joints: Unremarkable. No acute fracture. Soft tissues: Unremarkable. Other findings: There is significant artifact on this examination, limiting evaluation. IMPRESSION: No evidence of nephrolithiasis or acute obstructive uropathy. Dictated and Authenticated by: Emile Chow MD. Ordering:RODGER Oden MD
[2021-09-17] MEDS: HYDROmorphone 2 MG/ML VIAL 1 MG IVP (04:59)
== END 2021-09-17 06:34 | disposition home or self-care (01) ==
PROVIDERS: Emergency Provider Student in an Organized Health Care Education/Training Program; PCP Nurse Practitioner
DX: R10.32 Left lower quadrant pain (principal); R10.9 Unspecified abdominal pain; D72.829 Elevated white blood cell count, unspecified
CPT/HCPCS: 80048; 96361; 96374; 96375; 99284; 74176; 81003; 81015; 85025; J1885

== ENCOUNTER 2022-05-29 13:15 | Outpatient (CLI) | payer OTHER, SELFPAY ==
--- NOTE | 2022-05-29 13:15 | RT.EKG_ITS ---
APPROVED REPORT Exam: Resting ECG Reason for Exam: on Ritalin Patient Location: O HR:98 bpm ECG Measurements Heart Rate 98 AXIS VA 161 P 67 QRSd 114 QRS 38 QT 387 T 5 QTc 495 Conclusion Sinus rhythm...normal P axis, V-rate 50- 99 Atrial premature complexes...SV complexes w/ short R-R intvls Probable left atrial enlargement...P >50mS, <-0.10mV V1 Incomplete right bundle branch block...QRSd >112, terminal axis(90,270)
== END 2022-05-29 13:16 | disposition home or self-care (01) ==
LOC: DI.KIM 13:16
PROVIDERS: PCP Nurse Practitioner; Visit Provider Nurse Practitioner
DX: Z51.81 Encounter for therapeutic drug level monitoring (principal); R94.31 Abnormal electrocardiogram [ECG] [EKG]; I49.1 Atrial premature depolarization; I45.19 Other right bundle-branch block
CPT/HCPCS: 93010

== ENCOUNTER 2023-08-12 08:59 | Outpatient (RCR) | payer OTHER, SELFPAY | END 2023-08-12 23:59 | disposition home or self-care (01) | LOC: CARDOPNVT 08:59 | PROVIDERS: PCP Nurse Practitioner; Visit Provider Nurse Practitioner | DX: R00.2 Palpitations (principal) ==

== ENCOUNTER 2023-10-05 02:42 | Outpatient (CLI) | payer OTHER, SELFPAY ==
[2023-10-05 13:59] LABS: HCT 46.5 % (36.0-46.0); HGB 15.2 g/dL (11.2-15.7); MCH 28.6 pg (27.0-33.0); MCHC 32.7 % (32.0-36.0); MCV 87 fL (80-95); MPV 11.1 fL (8.0-11.0); Platelet Count 248 10^3/uL (130-400); RBC 5.32 10^6/uL (3.93-5.22); RDW 13.2 % (11.7-14.6); RDW-SD 42.1 fL; WBC 17.95 10^3/uL (4.4-10.8)
[2023-10-05 14:15] LABS: Hemoglobin A1C 6.6 % (<5.7)
[2023-10-05 14:16] LABS: Absolute Eosinophil Count 0.54 10^3/uL (0.0-0.7); Absolute Lymphocyte Count 5.92 10^3/uL (1.2-3.4); Absolute Neutrophil Count 10.59 10^3/uL (1.2-6.7); Atypical Lymphocytes % 4 %; Bands % 1 %; Diff Comment Manual Differential; RBC Morphology Normal
[2023-10-05 14:46] LABS: ALT 33 U/L (14-59); AST 13 U/L (15-37); Albumin 3.8 g/dL (3.4-5.0); Alkaline Phosphatase 88 U/L (46-116); Anion Gap 7.6 mmol/L (3-11); BUN 13 mg/dL (7-18); Bilirubin, Total 0.3 mg/dL (0.2-1.0); CO2 24.4 mmol/L (21.0-32.0); CREATININE 0.9 mg/dL (0.55-1.02); Calcium 8.9 mg/dL (8.5-10.1); Chloride 103 mmol/L (98-107); Estimated GFR 80.34 (mL/min/1.73m2); Glucose 193 mg/dL (74-106); Potassium 3.6 mmol/L (3.5-5.1); Sodium 135 mmol/L (136-145); TSH (W/Ref FT4) 3.88 uIU/mL (0.36-3.74); Total Protein 7.8 g/dL (6.4-8.2)
[2023-10-05 15:04] LABS: FREE T4 1.12 ng/dL (0.76-1.46)
[2023-10-05 15:22] LABS: Vitamin D 25 Total 8.2 ng/mL (30-100)
== END 2023-10-05 02:43 | disposition home or self-care (01) ==
PROVIDERS: PCP Nurse Practitioner; Visit Provider Nurse Practitioner Psychiatric/Mental Health
DX: E11.10 Type 2 diabetes mellitus with ketoacidosis without coma (principal); Z79.899 Other long term (current) drug therapy; Z00.00 Encounter for general adult medical examination without abnormal findings
CPT/HCPCS: 36415; 80053; 82306; 83036; 84439; 84443; 85025

== ENCOUNTER 2024-01-21 12:36 | Outpatient (CLI) | payer OTHER, SELFPAY ==
--- NOTE | 2024-01-21 13:25 | DI.MRI_ITS ---
Exam(s) MR UPPER JOINT RT WO EXAM: MR UPPER JOINT RT WO CLINICAL HISTORY: pain with ROM, impingement syndrome of rt shoulder, M75.41. TECHNIQUE: Multiplanar multisequence MRI was performed. COMPARISON: Shoulder MRI 21 April 2021. No recent comparison plain films FINDINGS: Exam is somewhat limited by motion. BONES: There is no fracture or contusion pattern. Postsurgical defect in the humeral head. JOINTS:The acromioclavicular joint shows mild degenerative changes. Small amount of fluid seen above AC joint. There the acromion is mildly downsloping. The glenohumeral joint shows no effusion. TENDONS: Supraspinatus: Unremarkable. Infraspinatus: Unremarkable. Subscapularis: Unremarkable. Teres Minor: Unremarkable. Biceps and [place]: Unremarkable. MUSCLES: Unremarkable. GLENOID LABRUM: Unremarkable on this noncontrast examination. . SOFT TISSUES: Increased size cyst seen at the inferior aspect of the subscapularis muscle.. It now m easures 14 by 7 by 9 millimeters OTHER: Subacromial and subdeltoid bursae shows no significant fluid. . IMPRESSION: No evidence of rotator cuff tear. Increased size of cyst seen inferior to the subscapularis muscle. Small amount fluid seen superior to the acromioclavicular joint. DATA REPOSITORY:
== END 2024-01-21 12:56 ==
LOC: DI 12:37
PROVIDERS: PCP Nurse Practitioner; Visit Provider Nurse Practitioner Family
DX: M75.41 Impingement syndrome of right shoulder (principal)
CPT/HCPCS: 73221